=== PATIENT | male | born 1940 | race Caucasian/White ===

== ENCOUNTER 2016-04-02 09:29 | Emergency (ER) | payer MEDICARE, BC ==
[2016-04-02] MEDS ORDERED: METOCLOPRAMIDE HCL 5 MG/ML VIAL IV ONE ×2 (10:31→12:03)
[2016-04-02] MEDS ORDERED: diphenhydrAMINE HCL 50 MG/ML VIAL IV ONE ×2 (10:31→12:03)
[2016-04-02] MEDS ORDERED: MECLIZINE HCL 25 MG TABLET PO ONE ×2 (10:31→12:05)
[2016-04-02] MEDS ORDERED: NORMAL SALINE IV ONE (10:33)
[2016-04-02] MEDS ORDERED: [UNRECOGNIZED DRUG - OTHER] IV ONE (10:33)
[2016-04-02 10:47] LABS: Hematocrit 38.3 % (42.0-52.0); Hemoglobin 12.9 gm/dL (13.5-18.0); Mean Cell Volume 93.6 fl (78-100); Mean Corpuscular Hemoglobin 31.5 pg (27-31); Mean Corpuscular Hgb Conc 33.7 g/dl (32-36); Mean Platelet Volume 9.9 fl (6.0-9.5); Neutrophil # 3.5 K/mm3 (1.3-6.0); Neutrophil % 62.5 % (42-75.0); Platelet Count 180 K/mm3 (150-450); Red Blood Count 4.09 M/mm3 (4.7-6.0); Red Cell Distribution Width 13.5 % (11.5-14.0); White Blood Count 5.6 K/mm3 (4.0-10.5)
--- NOTE | 2016-04-02 10:55 | ERNOTE ---
Headache ER HPI - General Presenting Symptoms: headache, "migraine", other - vertigo Time Seen by Provider: 04/02/16 10:02 Source: patient Exam Limitations: no limitations - Immun/Allergies/Home Medications Immunizations: IMMUNIZATION HX History of Influenza Vaccine No Hx Pneumococcal Vaccination Yes Allergies/Adverse Reactions: Allergies Penicillins Allergy (Severe, Verified 04/02/16 10:00) Hives Home Medications: HOME MEDICATIONS Aspirin [Aspirin Chewable] 81 mg PO DAILY 05/21/13 [Last Taken Unknown] Finasteride 5 mg PO DAILY 05/21/13 [Last Taken Unknown] Hydrochlorothiazide 25 mg PO DAILY 05/21/13 [Last Taken Unknown] Levothyroxine Sodium [Synthroid] 150 mcg PO DAILY 05/21/13 [Last Taken Unknown] Metoprolol Tartrate [Lopressor] 75 mg PO BID 05/21/13 [Last Taken Unknown] Naproxen Sodium [Aleve] 220 mg PO PRN PRN 05/21/13 [Last Taken Unknown] Simvastatin 40 mg PO DAILY 05/21/13 [Last Taken Unknown] Allopurinol [Zyloprim] 300 mg PO DAILY PRN 04/02/16 [Last Taken Unknown] Butalb/Acetaminophen/Caffeine [Fioricet] 1 tab PO TID PRN #20 tablet 04/02/16 [ Last Taken Unknown] Docusate Sodium [Colace] 100 mg PO DAILY 04/02/16 [Last Taken Unknown] Meclizine HCl [Antivert] 25 mg PO TID #42 tab 04/02/16 [Last Taken Unknown] - Pain Pain Score: 6 - History of Present Illness Narrative: Pt has been having vertigo and a headache for over a week now. Pt has chronic vertigo that has frequent exacerbations and this episode is similar to his usual dizziness. Timing of Headache: gradual, constant Quality: Present: throbbing Severity Maximum: Present: moderate Severity-Currently: Present: moderate Headache frequency: Present: occasional headaches Associated Symptoms: Reports: dizziness Review of Systems - Review of Systems Constitutional: Present: See HPI EYE: Present: no symptoms reported ENT: Present: no symptoms reported Respiratory: Present: no symptoms reported Cardiology: Present: no symptoms reported Gastrointestinal/Abdominal: Present: no symptoms reported Genitourinary: Present: no symptoms reported Musculoskeletal: Present: no symptoms reported Skin: Present: no symptoms reported Neurological: Present: headache, dizziness/light-headedness Endocrine: Present: no symptoms reported Hematologic/Lymphatic: Present: no symptoms reported Psych: Present: no symptoms reported - Patient's Past Medical History Patient History - Medical: Arthritis, Diabetes Type 2, GERD, Hypothyroidism, Kidney stone, Migraines, Obesity, Renal Failure, Other - vertigo Patient History - Cancer: No Hx of Cancer Patient History - Surgical Procedures: Angioplasty, Back Surgery, Cholecystectomy, Other - Social History Smoking Status: Former smoker Have you smoked in the past 12 months: No Physical Exam - Physical Exam General Appearance: Present: wd/wn, alert, moderate distress Eye Exam: Normal inspection: bilateral, PERRL: bilateral Ears, Nose, Throat: Present: normal ENT inspection, hearing grossly normal, normal pharynx Neck: Present: normal inspection, nontender Respiratory: Present: no respiratory distress, normal breath sounds, no accessory muscle use, chest nontender, lungs clear Cardiovascular/Chest: Present: regular rate, rhythm, no murmur, normal peripheral pulses Gastrointestinal/Abdominal: Present: normal bowel sounds, nontender, nondistended, soft, no organomegaly Rectal Exam: Present: deferred Back Exam: Present: normal inspection, normal range of motion Extremity Exam: Present: normal inspection, non-tender, no edema, normal range of motion Neurological Exam: Present: alert, oriented, normal mood/affect, no motor/ sensory deficits, 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 - Vital Signs Patient's Vital Signs:: I have reviewed the patient's vital signs. Vital Signs: Vital Signs 04/02/16 09:57 Temperature 35.5 C L Pulse Rate 66 Respiratory 14 Rate Blood Pressure 153/82 O2 Sat by Pulse 95 Oximetry - CT/Ultrasound CT/Ultrasound Narrative: CT results were reviewed - Progress/Reassessment Chief Complaint: Headache Progress:: Improved - Transfer of Care Expected Disposition: Discharge Plan - Plan Plan: Pt has chronic vertigo but did seem to respond to the Antivert. We will try some Fiorecet for his headaches. He has used Aleve in the past but given his renal insufficiency he will use that medication judiciously. Departure Clinical Impression: Vertigo, Migraine - Departure Disposition: Home self-care Condition: Good Instructions: Vertigo, [id number], Recurrent Migraine Headache, [id number] Referrals: Darell Madrigal DO [Primary Care Provider] - Prescriptions: Butalb/Acetaminophen/Caffeine [Fioricet] 1 tab PO TID PRN #20 tablet PRN Reason: Headache Meclizine HCl [Antivert] 25 mg PO TID #42 tab
[2016-04-02 11:01] LABS: Albumin * 3.1 gm/dl (3.4-5.0); Anion Gap 9.7 mmol/L (6.8-13.8); BUN/Creatinine Ratio 18.8 (9.0-21.6); Bilirubin, Total 0.3 mg/dL (0.0-1.1); Ca. Corrected For Albumin 9.6 mg/dL (8.4-10.2); Calcium * 9.2 mg/dL (7.9-10.9); Carbon Dioxide 30.2 mmol/L (24-32.6); Magnesium 1.7 mg/dL (1.2-2.8); Potassium 4.9 mmol/L (3.4-4.6); Total Protein 6.5 gm/dL (6.2-8.2)
[2016-04-02] MEDS ORDERED: MECLIZINE HCL 25 MG TABLET ONE ×2 (11:01→12:09)
[2016-04-02] MEDS ORDERED: diphenhydrAMINE HCL 50 MG/ML VIAL ONE ×2 (11:01→12:09)
[2016-04-02] MEDS ORDERED: METOCLOPRAMIDE HCL 5 MG/ML VIAL ONE ×2 (11:01→12:09)
[2016-04-02] MEDS ORDERED: DIAZEPAM 5 MG/ML SYRG IV ONE (12:04)
[2016-04-02] MEDS ORDERED: DIAZEPAM 5 MG/ML SYRG ONE (12:08)
[2016-04-02 14:36] VITALS: BP 165/82
[2016-04-04 13:12] LABS: Hemoglobin A1C 6.9 % (4.00-6.0)
== END 2016-04-02 13:35 | disposition home or self-care (01) ==
LOC: ER 09:29
DX: G43.909 Migraine, unspecified, not intractable, without status migrainosus (principal); R42 Dizziness and giddiness; Z87.891 Personal history of nicotine dependence; Z90.49 Acquired absence of other specified parts of digestive tract; E03.9 Hypothyroidism, unspecified

== ENCOUNTER 2016-12-02 12:36 | Emergency (ER) | payer MEDICARE, BC ==
[2016-12-02] MEDS ORDERED: LIDOCAINE HCL 20 ML UDC PO ONE (12:52)
[2016-12-02] MEDS ORDERED: BELLADONNA ALKALOIDS/PHENOBARB 60 ML BTL PO ONE (12:52)
[2016-12-02] MEDS ORDERED: MAG HYDROX/ALUMINUM HYD/SIMETH 30 ML UDC PO ONE (12:52)
[2016-12-02 13:09] LABS: Hematocrit 37.4 % (42.0-52.0); Mean Cell Volume 89.3 fl (78-100); Mean Corpuscular Hgb Conc 34.8 g/dl (32-36); Mean Platelet Volume 10.2 fl (6.0-9.5); Neutrophil # 5.1 K/mm3 (1.3-6.0); Neutrophil % 70.1 % (42-75.0); Platelet Count 180 K/mm3 (150-450); Red Blood Count 4.19 M/mm3 (4.7-6.0); Red Cell Distribution Width 13.4 % (11.5-14.0); White Blood Count 7.3 K/mm3 (4.0-10.5)
[2016-12-02 13:16] LABS: Prothrombin Time (Patient) 10.6 Seconds (9.4-11.4)
[2016-12-02 13:17] LABS: INR 1.02 INR (0.90-1.10); Partial Thrombolplastin Time 24.6 Seconds (24-32)
[2016-12-02 13:27] LABS: ALT 19 U/L (19-67); AST 11 U/L (0-48); Albumin * 3.2 gm/dl (3.4-5.0); Alkaline Phosphatase * 71 U/L (50-170); Anion Gap 13.9 mmol/L (6.8-13.8); BUN/Creatinine Ratio 21.3 (9.0-21.6); Bilirubin, Total 0.5 mg/dL (0.0-1.1); Blood Urea Nitrogen 37 mg/dL (6-23); Ca. Corrected For Albumin 9.3 mg/dL (8.4-10.2); Carbon Dioxide 27.3 mmol/L (24-32.6); Chloride 104 mmol/L (97-106); Glucose * 209 mg/dL (70-110); Magnesium 1.4 mg/dL (1.2-2.8); Potassium 5.2 mmol/L (3.4-4.6); Sodium 140 mmol/L (132-142); Total Protein 6.7 gm/dL (6.2-8.2)
[2016-12-02 13:28] LABS: Troponin I Less than 0.017 ng/ml (0.00-0.10)
--- NOTE | 2016-12-02 14:19 | ERNOTE ---
Chest Pain/Cardiac HPI Chief Complaint: Chest Pain Time Seen by Provider: 12/02/16 12:42 Source: patient, family Exam Limitations: no limitations Immunizations: IMMUNIZATION HX Immunizations Up to Date Yes History of Influenza Vaccine Yes Hx Pneumococcal Vaccination Yes Allergies/Adverse Reactions: Allergies Penicillins Allergy (Severe, Verified 12/02/16 12:53) Hives Home Medications: HOME MEDICATIONS Aspirin [Aspirin Chewable] 81 mg PO DAILY 05/21/13 [Last Taken Unknown] Finasteride 5 mg PO DAILY 05/21/13 [Last Taken Unknown] Levothyroxine Sodium [Synthroid] 150 mcg PO DAILY 05/21/13 [Last Taken Unknown] Metoprolol Tartrate [Lopressor] 75 mg PO BID 05/21/13 [Last Taken Unknown] Simvastatin 40 mg PO DAILY 05/21/13 [Last Taken Unknown] Cholecalciferol (Vitamin D3) [Vitamin D3] 1,000 unit PO DAILY 12/02/16 [Last Taken Unknown] Famotidine [Pepcid] 40 mg PO HS #30 tab 12/02/16 [Last Taken Unknown] Sucralfate [Carafate] 1 gm PO QID #60 tab 12/02/16 [Last Taken Unknown] Narrative: Patient presents with epigastric abdominal pain. Onset of symptoms was approximately 2-3 hours ago and describes it as a burning sensation. Patient denies any neck or jaw pain, he also denies any shortness of breath or diaphoresis. Timing: constant Severity/Quality: mild, burning Location: epigastric Chest Pain Radiation: no radiation Activities at Onset: none Modifying Factors - Improves: Present: nothing Modifying Factors - Worsens: Present: nothing Associated Symptoms: Present: denies symptoms Prior Chest Pain/Cardiac Workup: Reports: no prior cardiac workup Review of Systems - Review of Systems Constitutional: Present: See HPI EYE: Present: no symptoms reported ENT: Present: no symptoms reported Respiratory: Present: no symptoms reported Cardiology: Present: no symptoms reported Gastrointestinal/Abdominal: Present: See HPI, abdominal pain Genitourinary: Present: no symptoms reported Musculoskeletal: Present: no symptoms reported Skin: Present: no symptoms reported Neurological: Present: no symptoms reported Endocrine: Present: no symptoms reported Hematologic/Lymphatic: Present: no symptoms reported Psych: Present: no symptoms reported - Patient's Past Medical History Patient History - Medical: Arthritis, Diabetes Type 2, GERD, Hypothyroidism, Kidney stone, Migraines, Obesity, Renal Failure, Other Patient History - Cardiac/Respiratory: Arrhythmias, Coronary Heart Disease, Hypertension, Hyperlipidemia, Myocardial Infarction, Pneumonia Patient History - Cancer: No Hx of Cancer Patient History - Surgical Procedures: Angioplasty, Back Surgery, Cholecystectomy, Other - Social History Living Situations: home Psych History: No pertinent hx Smoking Status: Current every day smoker Alcohol Use: none Drug Use: none - Immunizations Immunizations Up to Date: Yes Hx Pneumococcal Vaccination: Yes History of Influenza Vaccine: Yes Physical Exam - Physical Exam General Appearance: Present: wd/wn, alert, mild distress Head Exam: Present: normal inspection Eye Exam: Normal inspection: bilateral, PERRL: bilateral Ears, Nose, Throat: Present: normal ENT inspection, H, normal pharynx Neck: Present: normal inspection, nontender Respiratory: Present: no respiratory distress, normal breath sounds, no accessory muscle use, chest nontender, lungs clear Cardiovascular/Chest: Present: regular rate, rhythm, no murmur, normal peripheral pulses Gastrointestinal/Abdominal: Present: normal bowel sounds, nondistended, soft, no organomegaly, tenderness - in the epigastric region Rectal Exam: Present: deferred Back Exam: Present: normal inspection, normal range of motion Extremity Exam: Present: normal inspection, non-tender, no edema, normal range of motion Neurological Exam: Present: alert, oriented, normal mood/affect Skin Exam: Present: normal color, warm/dry Lymphatic Exam: Present: no adenopathy ED Progress - Results and Orders Patient's Lab Results:: I have reviewed the patient's lab results. - Vital Signs Patient's Vital Signs:: I have reviewed the patient's vital signs. Vital Signs: Vital Signs 12/02/16 12/02/16 12/02/16 12:40 13:00 13:35 Temperature 36.0 C L Pulse Rate 63 64 69 Respiratory 9 L 11 L 12 Rate Blood Pressure 174/77 136/59 168/77 O2 Sat by Pulse 97 97 98 Oximetry - EKG EKG: NSR - X-Ray X-Ray #1 X-Ray: chest Interpretation: Reviewed by me - Progress/Reassessment Chief Complaint: Chest Pain Progress:: Improved - patient was given a GI cocktail and his stomach pain improved Plan - Plan Plan: Patient feels better however he has been off of his medicine for his GERD for some time. Patient will be restarted on Prevacid as well as Carafate and we will have him follow-up with his family physician. Patient may benefit from an EGD and I will leave that up to the discretion of his personal physician. Departure - Departure Clinical Impression: GERD with esophagitis Disposition: Home self-care Condition: Good Instructions: Indigestion, [id number] Referrals: Darell Madrigal DO [Primary Care Provider] - Prescriptions: Famotidine [Pepcid] 40 mg PO HS #30 tab Sucralfate [Carafate] 1 gm PO QID #60 tab
[2016-12-02 15:15] VITALS: BP 147/72
== END 2016-12-02 14:19 | disposition home or self-care (01) ==
LOC: ER 12:36
DX: K21.0 Gastro-esophageal reflux disease with esophagitis (principal); F17.200 Nicotine dependence, unspecified, uncomplicated

== ENCOUNTER 2017-02-01 16:50 | Emergency (ER) | payer MEDICARE, BC ==
[2017-02-01 17:13] LABS: Hematocrit 39.8 % (42.0-52.0); Hemoglobin 13.6 gm/dL (13.5-18.0); Mean Cell Volume 90.5 fl (78-100); Mean Corpuscular Hemoglobin 30.9 pg (27-31); Mean Corpuscular Hgb Conc 34.2 g/dl (32-36); Neutrophil # 3.7 K/mm3 (1.3-6.0); Neutrophil % 62.8 % (42-75.0); Platelet Count 192 K/mm3 (150-450); Red Cell Distribution Width 12.7 % (11.5-14.0); White Blood Count 5.9 K/mm3 (4.0-10.5)
[2017-02-01 17:21] LABS: Anion Gap 11.5 mmol/L (6.8-13.8); BUN/Creatinine Ratio 17.4 (9.0-21.6); Calcium * 9.4 mg/dL (7.9-10.9); Carbon Dioxide 31.3 mmol/L (24-32.6); Estimated Creat Clear 33.3; Magnesium 1.6 mg/dL (1.2-2.8); Potassium 4.8 mmol/L (3.4-4.6)
--- NOTE | 2017-02-01 17:22 | ERNOTE ---
Medical Problem HPI - General Chief Complaint: General Assessment Time Seen by Provider: 02/01/17 16:57 Source: patient, family Exam Limitations: no limitations - Immun/Allergies/Home Medications Immunizations: IMMUNIZATION HX Immunizations Up to Date Yes History of Influenza Vaccine No Hx Pneumococcal Vaccination Yes Allergies/Adverse Reactions: Allergies Penicillins Allergy (Severe, Verified 12/02/16 12:53) Hives Home Medications: HOME MEDICATIONS Aspirin [Aspirin Chewable] 81 mg PO DAILY 05/21/13 [Last Taken Unknown] Finasteride 5 mg PO DAILY 05/21/13 [Last Taken Unknown] Levothyroxine Sodium [Synthroid] 175 mcg PO DAILY 05/21/13 [Last Taken Unknown] Metoprolol Tartrate [Lopressor] 75 mg PO BID 05/21/13 [Last Taken Unknown] Simvastatin 40 mg PO DAILY 05/21/13 [Last Taken Unknown] Cholecalciferol (Vitamin D3) [Vitamin D3] 1,000 unit PO DAILY 12/02/16 [Last Taken Unknown] Allopurinol [Zyloprim] 400 mg PO DAILY 02/01/17 [Last Taken Unknown] Docusate Sodium [Colace] 100 mg PO DAILY 02/01/17 [Last Taken Unknown] - History of Present History Narrative: Earlier today the patient had bilateral lower lateral thoracic chest wall tenderness to palpation. All the symptoms had resolved just prior to coming into the hospital but they decided to continue on just to make sure nothing else was wrong. Patient had no other pain. No shortness of breath, no diaphoresis, no neck, arm or jaw pain. Timing: gone now Severity: moderate Review of Systems - Review of Systems Constitutional: Present: no symptoms reported EYE: Present: no symptoms reported ENT: Present: no symptoms reported Respiratory: Present: no symptoms reported Cardiology: Present: chest pain Gastrointestinal/Abdominal: Present: no symptoms reported Genitourinary: Present: no symptoms reported Musculoskeletal: Present: no symptoms reported Skin: Present: no symptoms reported Neurological: Present: no symptoms reported Endocrine: Present: no symptoms reported Hematologic/Lymphatic: Present: no symptoms reported Psych: Present: no symptoms reported - Patient's Past Medical History Patient History - Medical: Arthritis, Diabetes Type 2, GERD, Hypothyroidism, Kidney stone, Migraines, Obesity, Renal Failure, Other Patient History - Cardiac/Respiratory: Arrhythmias, Coronary Heart Disease, Hypertension, Hyperlipidemia, Myocardial Infarction, Pneumonia Patient History - Cancer: No Hx of Cancer Patient History - Surgical Procedures: Angioplasty, Back Surgery, Cholecystectomy, Other Patient History - Other: None - Social History Living Situations: home Abuse History: No History of abuse Psych History: No pertinent hx Smoking Status: Former smoker Alcohol Use: none Drug Use: none - Immunizations Immunizations Up to Date: Yes Hx Pneumococcal Vaccination: Yes History of Influenza Vaccine: No Physical Exam - Physical Exam General Appearance: Present: wd/wn, alert, no apparent distress Eye Exam: Normal inspection: bilateral, PERRL: bilateral Ears, Nose, Throat: Present: normal ENT inspection, H, normal pharynx Neck: Present: normal inspection, nontender Respiratory: Present: no respiratory distress, normal breath sounds, no accessory muscle use, chest nontender, lungs clear Cardiovascular/Chest: Present: regular rate, rhythm, no murmur, normal peripheral pulses Gastrointestinal/Abdominal: Present: normal bowel sounds, nontender, nondistended, soft, no organomegaly Rectal Exam: Present: deferred Back Exam: Present: normal inspection, normal range of motion Extremity Exam: Present: normal inspection, non-tender, no edema, normal range of motion Neurological Exam: Present: alert, oriented, normal mood/affect Skin Exam: Present: normal color, warm/dry Lymphatic Exam: Present: no adenopathy ED Progress - Results and Orders Patient's Lab Results:: I have reviewed the patient's lab results. - Vital Signs Patient's Vital Signs:: I have reviewed the patient's vital signs. Vital Signs: Vital Signs 02/01/17 16:52 Temperature 36.9 C Pulse Rate 77 Respiratory 18 Rate Blood Pressure 184/88 O2 Sat by Pulse 99 Oximetry - X-Ray X-Ray #1 X-Ray: chest Interpretation: Reviewed by me - Progress/Reassessment Chief Complaint: General Assessment Plan - Plan Plan: I am suspecting some sort of a chest wall muscle spasm as the etiology for his palpably reproducible chest wall pain that he had prior to arrival. Of note is his mildly elevated potassium at 4.8 and he'll be referred back to his family physician for monitoring of his potassium level. Patient is currently symptom- free and I see no need for any further intervention at this point. Departure Clinical Impression: Chest wall discomfort - Departure Disposition: Home self-care Condition: Good Instructions: Chest Wall Pain, [id number], Hyperkalemia, [id number] Referrals: Darell Madrigal, [Primary Care Provider] -
[2017-02-01] MEDS ORDERED: SODIUM POLYSTYRENE SULFON/SORB 15 G/60 ML BTL PO ONE (17:29)
[2017-02-01] MEDS ORDERED: SODIUM POLYSTYRENE SULFON/SORB 15 G/60 ML BTL ONE (17:31)
[2017-02-01 17:36] VITALS: BP 178/82
== END 2017-02-01 17:39 | disposition home or self-care (01) ==
LOC: ER 16:50
DX: R07.89 Other chest pain (principal); M19.90 Unspecified osteoarthritis, unspecified site; E11.9 Type 2 diabetes mellitus without complications; K21.9 Gastro-esophageal reflux disease without esophagitis; E03.9 Hypothyroidism, unspecified; N19 Unspecified kidney failure; I25.2 Old myocardial infarction; I10 Essential (primary) hypertension; E78.5 Hyperlipidemia, unspecified

== ENCOUNTER 2018-02-15 11:49 | Observation (INO) | payer BC, MEDICARE ==
[2018-02-15] MEDS ORDERED: DILTIAZEM HCL 5 MG/ML VIAL IV ONE ×2 (12:09→13:21)
[2018-02-15 12:17] LABS: Hematocrit 40.2 % (42.0-52.0); Hemoglobin 13.6 gm/dL (13.5-18.0); Mean Cell Volume 90.5 fl (78-100); Mean Corpuscular Hemoglobin 30.6 pg (27-31); Mean Corpuscular Hgb Conc 33.8 g/dl (32-36); Neutrophil # 4.5 K/mm3 (1.3-6.0); Neutrophil % 66.4 % (42-75.0); Platelet Count 184 K/mm3 (150-450); Red Blood Count 4.44 M/mm3 (4.7-6.0); Red Cell Distribution Width 13.1 % (11.5-14.0); White Blood Count 6.8 K/mm3 (4.0-10.5)
[2018-02-15 12:27] LABS: Prothrombin Time (Patient) 29.3 Seconds (9.0-11.0)
[2018-02-15 12:28] LABS: INR 2.9 INR (0.90-1.10)
[2018-02-15 12:36] LABS: ALT 26 U/L (19-67); AST 15 U/L (0-48); Albumin * 3.2 gm/dl (3.4-5.0); Alkaline Phosphatase * 71 U/L (50-170); Anion Gap 12.4 mmol/L (6.8-13.8); BUN/Creatinine Ratio 17.1 (9.0-21.6); Bilirubin, Total 0.3 mg/dL (0.0-1.1); Blood Urea Nitrogen 40 mg/dL (6-23); Ca. Corrected For Albumin 10.1 mg/dL (8.4-10.2); Calcium * 9.8 mg/dL (7.9-10.9); Carbon Dioxide 27.7 mmol/L (24-32.6); Chloride 106 mmol/L (97-106); Glucose * 196 mg/dL (70-110); Magnesium 1.8 mg/dL (1.2-2.8); Potassium 5.1 mmol/L (3.4-4.6); Sodium 141 mmol/L (132-142); Total Protein 7.2 gm/dL (6.2-8.2)
[2018-02-15 12:37] LABS: BNP * 613 pg/mL (5-650)
[2018-02-15 12:39] LABS: Troponin I Less than 0.017 ng/mL (0.00-0.10)
[2018-02-15] MEDS ORDERED: DEXTROSE 50%-WATER 50 ML SYRG IV ONE (12:42)
[2018-02-15] MEDS ORDERED: DILTIAZEM HCL 30 MG TABLET PO ONE (12:42)
[2018-02-15] MEDS ORDERED: INSULIN REGULAR, HUMAN 100 UNITS/ML VIAL IV ONE (12:42)
[2018-02-15] MEDS ORDERED: SODIUM POLYSTYRENE SULFON/SORB 15 G/60 ML BTL PO ONE (12:42)
[2018-02-15] MEDS ORDERED: CALCIUM GLUCONATE 4.65 MEQ/10 ML VIAL IV ONE (13:23)
[2018-02-15] MEDS ORDERED: SODIUM BICARBONATE 1 MEQ/ML SYRG IV ONE (13:23)
[2018-02-15] MEDS ORDERED: ALBUTEROL SULFATE 2.5 MG/0.5 ML VIAL.NEB IH ONE (13:23)
--- NOTE | 2018-02-15 13:35 | ERNOTE ---
Dyspnea - General Presenting Symptoms: shortness of breath, other - he feels like his heart is racing Time Seen by Provider: 02/15/18 11:55 Source: patient, family Exam Limitations: no limitations - Immun/Allergies/Home Medications Immunizations: IMMUNIZATION HX Immunizations Up to Date Yes History of Influenza Vaccine No Hx Pneumococcal Vaccination Yes Allergies/Adverse Reactions: Allergies Penicillins Allergy (Severe, Verified 02/15/18 12:02) Hives Home Medications: HOME MEDICATIONS Aspirin [Aspirin Chewable] 81 mg PO DAILY 05/21/13 [Last Taken Unknown] Finasteride 5 mg PO DAILY 05/21/13 [Last Taken Unknown] Levothyroxine Sodium [Synthroid] 175 mcg PO DAILY 05/21/13 [Last Taken Unknown] Cholecalciferol (Vitamin D3) [Vitamin D3] 1,000 unit PO DAILY 12/02/16 [Last Taken Unknown] Docusate Sodium [Colace] 100 mg PO DAILY 02/01/17 [Last Taken Unknown] Glimepiride [Amaryl] 2 mg PO DAILY 07/17/17 [Last Taken Unknown] allopurinol 300 mg tablet 300 mg PO DAILY PRN 11/06/17 [Last Taken Unknown] metoprolol tartrate 50 mg tablet 50 mg PO BID 11/06/17 [Last Taken Unknown] sertraline 50 mg tablet 50 mg PO DAILY #30 tab 12/21/17 [Last Taken Unknown] simvastatin 20 mg tablet 20 mg PO QPM 12/21/17 [Last Taken Unknown] Warfarin Sodium [Coumadin] 2.5 mg PO MOFR 02/15/18 [Last Taken Unknown] Warfarin Sodium [Coumadin] 5 mg PO SUTUWETHSA 02/15/18 [Last Taken Unknown] - History of Present Illness Narrative: Patient states that he has some shortness of breath and he feels like his heart is racing. Onset was last night and persists through to today Severity: moderate Treatment AIRPORT PLANNER: none Initiating event: Reports: none Frequency of episodes: Reports: occassional episodes Associated Symptoms-Dyspnea: Reports: palpitations Review of Systems - Review of Systems Constitutional: Present: See HPI EYE: Present: no symptoms reported ENT: Present: no symptoms reported Respiratory: Present: See HPI Cardiology: Present: See HPI Gastrointestinal/Abdominal: Present: no symptoms reported Genitourinary: Present: no symptoms reported Musculoskeletal: Present: no symptoms reported Skin: Present: no symptoms reported Neurological: Present: no symptoms reported Endocrine: Present: no symptoms reported Hematologic/Lymphatic: Present: no symptoms reported Psych: Present: no symptoms reported Medical History (Last Reviewed 02/15/18 @ 12:01 by Guero Winter RN) Atrial fibrillation (Chronic) Onset Date: ~05/2017 Hypovitaminosis D (Chronic) Onset Date: Unknown Stenosis of right carotid artery (Chronic) Onset Date: Unknown Secondary hyperparathyroidism (of renal origin) (Chronic) Onset Date: Unknown Psoriasis (Chronic) Onset Date: Unknown Onychomycosis (Chronic) Onset Date: Unknown Obesity (Chronic) Onset Date: Unknown Hypothyroidism (Chronic) Onset Date: Unknown Hypertension (Chronic) Onset Date: Unknown Hyperlipidemia (Chronic) Onset Date: Unknown Gout (Chronic) Onset Date: Unknown GERD (gastroesophageal reflux disease) (Chronic) Onset Date: Unknown Diabetes mellitus, type II (Chronic) Onset Date: Unknown Coronary artery disease (Chronic) Onset Date: 02/22/13 Chronic kidney disease, stage 3 (Chronic) Onset Date: Unknown Renal failure (Chronic) Onset Date: Unknown Arthritis (Chronic) Onset Date: Unknown BPH (benign prostatic hyperplasia) Onset Date: Unknown Gastritis Onset Date: ~05/2017 Headache Onset Date: Unknown Hyperkalemia Onset Date: Unknown Kidney stone Onset Date: Unknown Migraine Onset Date: Unknown Pneumonia Onset Date: Unknown Proteinuria Onset Date: Unknown Toe pain, left Onset Date: Unknown Atrial flutter Onset Date: 06/09/17 Myocardial infarction Onset Date: Unknown x3 Surgical History: Surgical History (Last Reviewed 02/15/18 @ 12:01 by Guero Winter RN) H/O colonoscopy Onset Date: ~2008 [place]: WNL History of PTCA Onset Date: Unknown History of angioplasty Onset Date: Unknown x3 History of back surgery Onset Date: 1983 Dr. Perry; Lumbar laminectomy L4 History of cholecystectomy Onset Date: ~1975 History of esophagogastroduodenoscopy (EGD) Onset Date: ~2008 History of excision of epidermal inclusion cyst Onset Date: 09/19/13 Dr. Lars Conroy, [facility]. Right groin. Family History: Family History (Last Reviewed 02/15/18 @ 12:01 by Guero Winter RN) Mother , age 84 Diabetes Breast cancer Social History: Preferred Language Greek Smoking Status Former smoker Abuse History No History of abuse Psych History No pertinent hx Alcohol Use none Drug Use none (Last Updated 01/07/18 @ 23:54 by Darell Madrigal DO) No Social History Section defined Physical Exam - Physical Exam General Appearance: Present: wd/wn, alert, mild distress Head Exam: Present: normal inspection, no evidence of injury Eye Exam: Normal inspection: bilateral, PERRL: bilateral Ears, Nose, Throat: Present: normal ENT inspection, H, normal pharynx Neck: Present: normal inspection, nontender Respiratory: Present: no respiratory distress, normal breath sounds, no accessory muscle use, chest nontender, lungs clear Cardiovascular/Chest: Present: no murmur, normal peripheral pulses, tachycardia Gastrointestinal/Abdominal: Present: normal bowel sounds, nontender, nondistended, soft, no organomegaly Rectal Exam: Present: deferred Male Genitals Exam: Present: deferred Back Exam: Present: normal inspection, normal range of motion Extremity Exam: Present: normal inspection, non-tender, no edema, normal range of motion Neurological Exam: Present: alert, oriented, normal mood/affect Skin Exam: Present: normal color, warm/dry Lymphatic Exam: Present: no adenopathy ED Progress - Results and Orders Patient's Lab Results:: I have reviewed the patient's lab results. - Vital Signs Patient's Vital Signs:: I have reviewed the patient's vital signs. Vital Signs: Vital Signs 02/15/18 11:49 02/15/18 12:12 02/15/18 12:16 Temperature 36.6 C Pulse Rate 129 H 130 H 118 H Respiratory Rate 14 27 H Blood Pressure 102/76 122/86 106/80 O2 Sat by Pulse Oximetry 98 97 02/15/18 12:42 02/15/18 12:57 02/15/18 13:00 Temperature Pulse Rate 116 H 111 H 110 H Respiratory Rate 17 16 Blood Pressure 113/82 132/84 132/84 O2 Sat by Pulse Oximetry 97 94 - EKG EKG: atrial flutter EKG read: Reviewed by me - X-Ray X-Ray #1 X-Ray: chest Interpretation: Reviewed by me - Progress/Reassessment Chief Complaint: Dyspnea Plan - Plan Plan: We have attempted to correct the patient's atrial flutter with a rapid response and we got a brief results with Cardizem IV over U reverted back to a rapid heart rate. We have also started a correction for his hyperkalemia which could be driving atrial flutter as well. Patient needs to be admitted overnight to we can get the right dose of Cardizem for him and we can get the hyperkalemia corrected. Departure Clinical Impression: Hyperkalemia Atrial flutter Qualifiers: Atrial flutter type: typical Qualified Code(s): I48.3 - Typical atrial flutter - Departure Disposition: Still a patient Condition: Fair Referrals: Darell Madrigal DO [Primary Care Provider] - Critical Care Note - Critical Care Note Total Time (mins): 35 Comments: Patient required multiple doses of IV Cardizem as well as adding an oral Cardizem to help control her rate. He was also given a variety medications for his hyperkalemia and he'll need to be admitted at least overnight to get a handle on both his heart rate and his hyperkalemia.
[2018-02-15] MEDS ORDERED: DILTIAZEM HCL 120 MG CAP.SR.24H PO ONE (14:00)
[2018-02-15] MEDS ORDERED: ALLOPURINOL 300 MG TABLET PO PRN (16:35)
[2018-02-15] MEDS ORDERED: WARFARIN SODIUM 2.5 MG TABLET PO SCH (17:00)
[2018-02-15] MEDS ORDERED: SIMVASTATIN 20 MG TABLET PO SCH (17:00)
[2018-02-15] MEDS: 0.5 NORMAL SALINE 1,000 ML IV PRN (18:52)
[2018-02-15] MEDS ORDERED: METOPROLOL TARTRATE 50 MG TABLET PO SCH (21:00)
[2018-02-15] MEDS: METOPROLOL TARTRATE 100 MG TABLET PO SCH (21:40)
--- NOTE | 2018-02-15 23:09 | HP ---
Chief Complaint - Chief Complaint Date of Service: 02/15/18 Time of Service: 16:45 Chief Complaint: Shortness of breath History of Present Illness: Jayjay is a 77 yo male that presented to the [facility] ER with shortness of breath. He has a known history of atrial fibrillation and is on metoprolol 50mg BID and Coumadin. He woke up to shortness of breath and presented to the ER. He was found to have a rapid heart rate of 130 to 140. He was given IV diltiazem and heart rate improved. He reports no changes in medication, diet, or activity. Medical History (Last Reviewed 02/25/18 @ 13:59 by Mikayla Chawla RN) Atrial fibrillation (Chronic) Onset Date: ~05/2017 Hypovitaminosis D (Chronic) Onset Date: Unknown Stenosis of right carotid artery (Chronic) Onset Date: Unknown Secondary hyperparathyroidism (of renal origin) (Chronic) Onset Date: Unknown Psoriasis (Chronic) Onset Date: Unknown Onychomycosis (Chronic) Onset Date: Unknown Obesity (Chronic) Onset Date: Unknown Hypothyroidism (Chronic) Onset Date: Unknown Hypertension (Chronic) Onset Date: Unknown Hyperlipidemia (Chronic) Onset Date: Unknown Gout (Chronic) Onset Date: Unknown GERD (gastroesophageal reflux disease) (Chronic) Onset Date: Unknown Diabetes mellitus, type II (Chronic) Onset Date: Unknown Coronary artery disease (Chronic) Onset Date: 02/22/13 Chronic kidney disease, stage 3 (Chronic) Onset Date: Unknown Renal failure (Chronic) Onset Date: Unknown Arthritis (Chronic) Onset Date: Unknown BPH (benign prostatic hyperplasia) Onset Date: Unknown Gastritis Onset Date: ~05/2017 Headache Onset Date: Unknown Hyperkalemia Onset Date: Unknown Kidney stone Onset Date: Unknown Migraine Onset Date: Unknown Pneumonia Onset Date: Unknown Proteinuria Onset Date: Unknown Toe pain, left Onset Date: Unknown Atrial flutter Onset Date: 06/09/17 Myocardial infarction Onset Date: Unknown x3 Surgical History: Surgical History (Last Reviewed 02/25/18 @ 13:59 by Mikayla Chawla RN) H/O colonoscopy Onset Date: ~2008 [place]: WNL History of PTCA Onset Date: Unknown History of angioplasty Onset Date: Unknown x3 History of back surgery Onset Date: 1983 Dr. Perry; Lumbar laminectomy L4 History of cholecystectomy Onset Date: ~1975 History of esophagogastroduodenoscopy (EGD) Onset Date: ~2008 History of excision of epidermal inclusion cyst Onset Date: 09/19/13 Dr. Lars Conroy, [facility]. Right groin. Family History: Family History (Last Reviewed 02/25/18 @ 13:59 by Mikayla Chawla RN) Mother , age 84 Diabetes Breast cancer Social History: Patient Lives/Resources With Spouse Utilized Occupation Retired Preferred Language Ch[place] Do you have any cheondoism or No cultural preference? Smoking Status Never smoker Have you smoked in the past 12 No months Abuse History No History of abuse Psych History No pertinent hx Alcohol Use none Drug Use none (Last Updated 01/07/18 @ 23:54 by Darell Madrigal DO) No Social History Section defined Review Of Systems (GEN) - Review of Systems Generalized/Overall Review: Absent: Weakness, Chills, Fever Respiratory: Present: Shortness of Breath. Absent: Cough Cardiac: Present: Palpitations. Absent: Chest Pain, Edema Abdominal: Absent: Nausea, Vomiting Genitourinary: Present: No Symptoms Reported Musculoskeletal: Present: No Symptoms Reported Neurological: Present: No Symptoms Reported Skin: Present: No Symptoms Reported Endocrine: Present: No Symptoms Reported Immunizations: IMMUNIZATION HX Immunizations Up to Date Yes History of Influenza Vaccine No Hx Pneumococcal Vaccination Yes Allergies/Adverse Reactions: Allergies Allergy/AdvReac Type Severity Reaction Status Date / Time Penicillins Allergy Severe Hives Verified 02/25/18 13:58 Home Medications: HOME MEDICATIONS Aspirin [Aspirin Chewable] 81 mg PO DAILY 05/21/13 [Last Taken Unknown] Finasteride 5 mg PO DAILY 05/21/13 [Last Taken Unknown] Levothyroxine Sodium [Synthroid] 175 mcg PO DAILY 05/21/13 [Last Taken Unknown] Cholecalciferol (Vitamin D3) [Vitamin D3] 1,000 unit PO DAILY 12/02/16 [Last Taken Unknown] Docusate Sodium [Colace] 100 mg PO DAILY 02/01/17 [Last Taken Unknown] Glimepiride [Amaryl] 2 mg PO DAILY 07/17/17 [Last Taken Unknown] allopurinol 300 mg tablet 300 mg PO DAILY PRN 11/06/17 [Last Taken Unknown] sertraline 50 mg tablet 50 mg PO DAILY #30 tab 12/21/17 [Last Taken Unknown] simvastatin 20 mg tablet 20 mg PO QPM 12/21/17 [Last Taken Unknown] Warfarin Sodium [Coumadin] 2.5 mg PO MOFR 02/15/18 [Last Taken Unknown] Warfarin Sodium [Coumadin] 5 mg PO SUTUWETHSA 02/15/18 [Last Taken Unknown] Metoprolol Tartrate [Lopressor] 100 mg PO BID #60 tab 02/16/18 [Last Taken Unknown] Exam - Exam Vital Signs: Vital Signs - Last Taken Temp 36.7 C 02/15/18 23:03 Pulse 68 02/15/18 23:03 Resp 16 02/15/18 23:03 BP 124/76 02/15/18 23:03 Pulse Ox 95 02/15/18 23:03 Constitutional: Present: Alert, Oriented x3, Cooperative ENT Exam: Present: hearing grossly normal Eye Exam: bilateral eye: normal inspection Respiratory: Present: lungs clear, normal breath sounds Cardiovascular/Chest: Present: no murmur, irregularly irregular Peripheral Pulses: radial (R): 2+, radial (L): 2+ Abdomen: Present: Normal bowel sounds, soft, nontender, nondistended, no rebound tenderness Skin Exam: Present: normal color, warm/dry, no cyanosis Lymphatic: Present: no adenopathy Appearance: Present: appropriate appearance, appropriate insight Eye contact: Present: cooperative, good eye contact, normal speech Diagnostic Studies: Abnormal Lab Results 02/15/18 02/15/18 02/15/18 Range/Units 12:15 12:15 12:15 RBC 4.44 L (4.7-6.0) M/mm3 Hct 40.2 L (42.0-52.0) % Lymphocytes % 12.4 L (20-51) % Monocytes % 9.9 H (0.0-9) % Eosinophils % 10.5 H (0.0-3.0) % Lymphocytes # 0.84 L (1.5-3.5) k/mm3 PT 29.3 H (9.0-11.0) Seconds INR (Anticoag Therapy) 2.90 H (0.90-1.10) INR Plasma Sodium 143 H (130-142) mmol/L Potassium 5.1 H (3.4-4.6) mmol/L BUN 40 H (6-23) mg/dL Creatinine 2.34 H (0.4-1.4) mg/dL Est GFR (Non-Af Amer) 29 L (60-130) mL/min Random Glucose 196 H (70-110) mg/dL Albumin 3.2 L (3.4-5.0) gm/dl TSH (0.358-3.74) uIU/mL 02/15/18 Range/Units 16:42 RBC (4.7-6.0) M/mm3 Hct (42.0-52.0) % Lymphocytes % (20-51) % Monocytes % (0.0-9) % Eosinophils % (0.0-3.0) % Lymphocytes # (1.5-3.5) k/mm3 PT (9.0-11.0) Seconds INR (Anticoag Therapy) (0.90-1.10) INR Plasma Sodium (130-142) mmol/L Potassium (3.4-4.6) mmol/L BUN (6-23) mg/dL Creatinine (0.4-1.4) mg/dL Est GFR (Non-Af Amer) (60-130) mL/min Random Glucose (70-110) mg/dL Albumin (3.4-5.0) gm/dl TSH 0.344 L (0.358-3.74) uIU/mL Laboratory Results WBC 6.8 K/mm3 (4.0-10.5) 02/15/18 12:15 RBC 4.44 M/mm3 (4.7-6.0) L 02/15/18 12:15 Hgb 13.6 gm/dL (13.5-18.0) 02/15/18 12:15 Hct 40.2 % (42.0-52.0) L 02/15/18 12:15 MCV 90.5 fl (78-100) 02/15/18 12:15 MCH 30.6 pg (27-31) 02/15/18 12:15 MCHC 33.8 g/dl (32-36) 02/15/18 12:15 RDW 13.1 % (11.5-14.0) 02/15/18 12:15 Plt Count 184 K/mm3 (150-450) 02/15/18 12:15 MPV 10.0 fl (8-11.3) 02/15/18 12:15 Immature Gran % (Auto) 0.10 % (0.001-0.429) 02/15/18 12:15 Immature Gran # (Auto) 0.01 K/mm3 (0.000-0.0310) 02/15/18 12:15 Neutrophils % 66.4 % (42-75.0) 02/15/18 12:15 Lymphocytes % 12.4 % (20-51) L 02/15/18 12:15 Monocytes % 9.9 % (0.0-9) H 02/15/18 12:15 Eosinophils % 10.5 % (0.0-3.0) H 02/15/18 12:15 Basophils % 0.7 % (0.0-1.0) 02/15/18 12:15 Nucleated RBC % 0.0 k/mm3 (0-1) 02/15/18 12:15 Neutrophils # 4.5 K/mm3 (1.3-6.0) 02/15/18 12:15 Lymphocytes # 0.84 k/mm3 (1.5-3.5) L 02/15/18 12:15 Monocytes # 0.7 k/mm3 (0.0-1.0) 02/15/18 12:15 Eosinophils # 0.7 k/mm3 (0.0-0.7) 02/15/18 12:15 Absolute Basophils 0.1 k/mm3 (0.0-0.1) 02/15/18 12:15 PT 29.3 Seconds (9.0-11.0) H 02/15/18 12:15 INR (Anticoag Therapy) 2.90 INR (0.90-1.10) H 02/15/18 12:15 Sodium 141 mmol/L (132-142) 02/15/18 12:15 Plasma Sodium 143 mmol/L (130-142) H 02/15/18 12:15 Potassium 5.1 mmol/L (3.4-4.6) H 02/15/18 12:15 Chloride 106 mmol/L (97-106) 02/15/18 12:15 Carbon Dioxide 27.7 mmol/L (24-32.6) 02/15/18 12:15 Anion Gap 12.4 mmol/L (6.8-13.8) 02/15/18 12:15 BUN 40 mg/dL (6-23) H 02/15/18 12:15 Creatinine 2.34 mg/dL (0.4-1.4) H 02/15/18 12:15 Est GFR (Non-Af Amer) 29 mL/min (60-130) L 02/15/18 12:15 BUN/Creatinine Ratio 17.1 (9.0-21.6) 02/15/18 12:15 Random Glucose 196 mg/dL (70-110) H 02/15/18 12:15 Calcium 9.8 mg/dL (7.9-10.9) 02/15/18 12:15 Calcium Adj for Albumin 10.1 mg/dL (8.4-10.2) 02/15/18 12:15 Magnesium 1.8 mg/dL (1.2-2.8) 02/15/18 12:15 Total Bilirubin 0.3 mg/dL (0.0-1.1) 02/15/18 12:15 AST 15 U/L (0-48) 02/15/18 12:15 ALT 26 U/L (19-67) 02/15/18 12:15 Alkaline Phosphatase 71 U/L (50-170) 02/15/18 12:15 Troponin I Less than 0.017 ng/mL (0.00-0.10) 02/15/18 12:15 B-Natriuretic Peptide 613 pg/mL (5-650) 02/15/18 12:15 Total Protein 7.2 gm/dL (6.2-8.2) 02/15/18 12:15 Albumin 3.2 gm/dl (3.4-5.0) L 02/15/18 12:15 TSH 0.344 uIU/mL (0.358-3.74) L 02/15/18 16:42 Assessment/Plan - Assessment/Plan (1) Atrial flutter with rapid ventricular response Assessment: Jayjay is a 77 yo [place] male with atrial flutter/fibrillation with RVR. He was given IV diltiazem in the ER which improved his heart rate. He is on metoprolol orally at home for rate control. Will increase this from 50 BID to 100mg BID. He will be admitted to observation and will monitor heart rate overnight. If rate remains controlled on the higher dose of metoprolol he will be discharged to home tomorrow. Problem: Acute
[2018-02-16] MEDS ORDERED: GLIMEPIRIDE 2 MG TABLET PO SCH (07:00)
[2018-02-16] MEDS ORDERED: LEVOTHYROXINE SODIUM 175 MCG TABLET PO SCH (07:00)
[2018-02-16] MEDS: 0.5 NORMAL SALINE 1,000 ML IV PRN (08:04)
[2018-02-16] MEDS ORDERED: FINASTERIDE 5 MG TABLET PO SCH (09:00)
[2018-02-16] MEDS ORDERED: CHOLECALCIFEROL 1,000 UNIT CAPSULE PO SCH (09:00)
[2018-02-16] MEDS ORDERED: DOCUSATE SODIUM 100 MG CAPSULE PO SCH (09:00)
[2018-02-16] MEDS ORDERED: ASPIRIN 81 MG TAB.CHEW PO SCH (09:00)
[2018-02-16] MEDS ORDERED: SERTRALINE HCL 50 MG TABLET PO SCH (09:00)
[2018-02-16] MEDS: METOPROLOL TARTRATE 100 MG TABLET PO SCH (09:38)
[2018-02-16 09:46] LABS: Prothrombin Time (Patient) 28.2 Seconds (9.0-11.0)
[2018-02-16 09:48] LABS: INR 2.79 INR (0.90-1.10)
[2018-02-16 14:09] LABS: Albumin * 2.7 gm/dl (3.4-5.0); Anion Gap 9.1 mmol/L (6.8-13.8); BUN/Creatinine Ratio 20.3 (9.0-21.6); Bilirubin, Total 0.3 mg/dL (0.0-1.1); Ca. Corrected For Albumin 9.8 mg/dL (8.4-10.2); Calcium * 9.1 mg/dL (7.9-10.9); Carbon Dioxide 27.8 mmol/L (24-32.6); Potassium 4.9 mmol/L (3.4-4.6); Total Protein 6.2 gm/dL (6.2-8.2)
--- NOTE | 2018-02-16 14:30 | DS ---
(1) Atrial flutter with rapid ventricular response Problem: Acute (2) Hyperkalemia Problem: Acute Description of Stay: Jayjay is a 77 yo male that was admitted due to atrial flutter/fibrillation with rapid ventricular response. He has a known history of atrial fibrillation and is on metoprolol 50mg BID and Coumadin. He woke up to shortness of breath and presented to the ER. He was found to have a rapid heart rate of 130 to 140. He was given IV diltiazem and heart rate improved. As he was already on metoprolol for rate control I elected to increase his metoprolol to 100mg BID rather than start him on a new medication of diltiazem. Since increasing his metoprolol to 100mg BID his heart rate has been under good control in the 60s. He has felt his usual and feels able for home discharge. On admission he also had a slightly elevated creatinine above his baseline and a slightly elevate potassium. This were rechecked today and improved. He is ok to be discharged to home and follow up with me in a week. Procedures Performed: none Results and Findings: Lab Pending Results 02/15/18 12:15: WBC 6.8, RBC 4.44 L, Hgb 13.6, Hct 40.2 L, MCV 90.5, MCH 30.6, MCHC 33.8, RDW 13.1, Plt Count 184, MPV 10.0, Immature Gran % (Auto) 0.10, Immature Gran # (Auto) 0.01, Neutrophils % 66.4, Lymphocytes % 12.4 L, Monocytes % 9.9 H, Eosinophils % 10.5 H, Basophils % 0.7, Nucleated RBC % 0.0, Neutrophils # 4.5, Lymphocytes # 0.84 L, Monocytes # 0.7, Eosinophils # 0.7, Absolute Basophils 0.1 02/15/18 12:15: Sodium 141, Plasma Sodium 143 H, Potassium 5.1 H, Chloride 106, Carbon Dioxide 27.7, Anion Gap 12.4, BUN 40 H, Creatinine 2.34 H, Est GFR (Non- Af Amer) 29 L, BUN/Creatinine Ratio 17.1, Random Glucose 196 H, Calcium 9.8, Calcium Adj for Albumin 10.1, Magnesium 1.8, Total Bilirubin 0.3, AST 15, ALT 26, Alkaline Phosphatase 71, Troponin I Less than 0.017, B-Natriuretic Peptide 613, Total Protein 7.2, Albumin 3.2 L 02/15/18 12:15: PT 29.3 H, INR (Anticoag Therapy) 2.90 H 02/15/18 16:42: TSH 0.344 L 02/16/18 09:36: PT 28.2 H, INR (Anticoag Therapy) 2.79 H 02/16/18 13:45: Sodium 138, Plasma Sodium 139, Potassium 4.9 H, Chloride 106, Carbon Dioxide 27.8, Anion Gap 9.1, BUN 44 H, Creatinine 2.17 H, Est GFR (Non-Af Amer) 31 L, BUN/Creatinine Ratio 20.3, Random Glucose 135 H D, Calcium 9.1, Calcium Adj for Albumin 9.8, Total Bilirubin 0.3, AST 18, ALT 22, Alkaline Phosphatase 62, Total Protein 6.2, Albumin 2.7 L Discharge Location: Home Disposition: Home self-care Condition: Good Discharge Activity: Activity as tolerated Discharge Diet: Consistent carbs Referrals: Darell Madrigal DO [Primary Care Provider] - One Week Problem Oriented Discharge Instructions to Patient/Family: Atrial Fibrillation, [id number] Additional Patient Instructions (free text): -Please make TCM appointment unless fci discharge. Thank you! Brittney @ [phone]. Prescriptions (Any new or edited meds): Metoprolol Tartrate [Lopressor] 100 mg PO BID #60 tablet Complete Home Medications List: Complete Home Medication List: Aspirin [Aspirin Chewable] 81 mg PO DAILY 05/21/13 Finasteride 5 mg PO DAILY 05/21/13 Levothyroxine Sodium [Synthroid] 175 mcg PO DAILY 05/21/13 Cholecalciferol (Vitamin D3) [Vitamin D3] 1,000 unit PO DAILY 12/02/16 Docusate Sodium [Colace] 100 mg PO DAILY 02/01/17 Glimepiride [Amaryl] 2 mg PO DAILY 07/17/17 allopurinol 300 mg tablet 300 mg PO DAILY PRN 11/06/17 sertraline 50 mg tablet 50 mg PO DAILY #30 tab 12/21/17 simvastatin 20 mg tablet 20 mg PO QPM 12/21/17 Warfarin Sodium [Coumadin] 2.5 mg PO MOFR 02/15/18 Warfarin Sodium [Coumadin] 5 mg PO SUTUWETHSA 02/15/18 Metoprolol Tartrate [Lopressor] 100 mg PO BID #60 tablet 02/16/18
[2018-02-16 16:54] VITALS: BP 150/79
[2018-02-16] MEDS ORDERED: WARFARIN SODIUM 5 MG TABLET PO SCH (17:00)
== END 2018-02-16 16:53 | disposition home or self-care (01) ==
LOC: ER 11:49 → MS 11:49
PROVIDERS: ADMIT Family Medicine; ATTEND Family Medicine
DX: E11.9 Type 2 diabetes mellitus without complications; E66.9 Obesity, unspecified; E87.5 Hyperkalemia; Z68.30 Body mass index [BMI] 30.0-30.9, adult; Z79.01 Long term (current) use of anticoagulants; Z23 Encounter for immunization; Z79.84 Long term (current) use of oral hypoglycemic drugs; I25.10 Atherosclerotic heart disease of native coronary artery without angina pectoris; Z87.891 Personal history of nicotine dependence; I48.92 Unspecified atrial flutter; I12.9 Hypertensive chronic kidney disease with stage 1 through stage 4 chronic kidney disease, or unspecified chronic kidney disease; E03.9 Hypothyroidism, unspecified; N18.3 Chronic kidney disease, stage 3 (moderate)
CPT/HCPCS: 36415; 71020; 71046; 80053; 83519; 83735; 83880; 84443; 84484; 85025; 85610; 90686; 93005; 94640; 94664; 96361; 96374; 96375; 96376; 99291; G0008; G0378

== ENCOUNTER 2019-04-07 05:09 | Observation (INO) ==
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
[2019-04-07 05:35] LABS: Hematocrit 38.9 % (42.0-52.0); Hemoglobin 12.8 gm/dL (13.5-18.0); Mean Cell Volume 91.5 fl (78-100); Mean Corpuscular Hemoglobin 30.1 pg (27-31); Mean Corpuscular Hgb Conc 32.9 g/dl (32-36); Mean Platelet Volume 9.3 fl (8-11.3); Neutrophil # 7.1 K/mm3 (1.3-6.0); Neutrophil % 78.2 % (42-75.0); Platelet Count 177 K/mm3 (150-450); Red Blood Count 4.25 M/mm3 (4.7-6.0); Red Cell Distribution Width 13.7 % (11.5-14.0); White Blood Count 9.1 K/mm3 (4.0-10.5)
[2019-04-07 05:43] LABS: Anion Gap 12.2 mmol/L (6.8-13.8); BUN/Creatinine Ratio 15.7 (9.0-21.6); Blood Urea Nitrogen 30 mg/dL (6-23); Carbon Dioxide 29.6 mmol/L (24-32.6); Chloride 105 mmol/L (97-106); Glucose * 239 mg/dL (70-110); Potassium 4.8 mmol/L (3.4-4.6); Sodium 142 mmol/L (132-142)
[2019-04-07 05:45] LABS: Prothrombin Time (Patient) 23.2 Seconds (9.1-10.7)
[2019-04-07 05:46] LABS: INR 2.42 INR (0.92-1.08); Partial Thrombolplastin Time 31.9 Seconds (24-32)
[2019-04-07 06:00] LABS: Urine Bilirubin Negative (NEGATIVE); Urine Blood 250 /ul (NEGATIVE); Urine Ketone Negative (NEGATIVE); Urine Nitrite Negative (NEGATIVE); Urine Protein >=300 mg/dL (NEGATIVE); Urine Specific Gravity 1.025 SP.GR. (1.005-1.030); Urine Urobilinogen Normal (NORMAL); Urine pH 6.5 pH (5.0-7.0)
[2019-04-07] MEDS ORDERED: NALBUPHINE HCL 10 MG/ML AMPUL IV ONE (06:06)
[2019-04-07 06:11] LABS: Urine Appearance Slightly Cloudy (CLEAR); Urine Bacteria None Seen; Urine Color Yellow; Urine RBC 25-50 /hpf (0-5); Urine WBC TRACE /hpf (0-5)
[2019-04-07] MEDS ORDERED: NORMAL SALINE 1,000 ML IV PRN (10:18)
[2019-04-07] MEDS ORDERED: traMADol HCL 50 MG TABLET PO PRN (14:19)
[2019-04-07] MEDS ORDERED: ACETAMINOPHEN 500 MG TABLET PO PRN (16:25)
[2019-04-07] MEDS ORDERED: WARFARIN SODIUM 5 MG TABLET PO SCH (17:00)
[2019-04-07] MEDS: SIMVASTATIN 20 MG TABLET PO SCH (22:00)
[2019-04-07] MEDS: METOPROLOL TARTRATE 100 MG TABLET PO SCH (22:00)
[2019-04-07] MEDS: HYDROcodone/ACETAMINOPHEN 1 EACH TABLET PO PRN (22:01)
--- NOTE | 2019-04-07 23:19 | HP ---
Chief Complaint - Chief Complaint Date of Service: 04/07/19 Time of Service: 16:00 Chief Complaint: Frequent falls, low back pain History of Present Illness: Jayjay is an 78 yo male with hx of DMII, TIA, HTN, and has been having frequent falls. He was seen in clinic recently and referred to outpatient PT. He was scheduled to see PT for the first time today but fell going into the bathroom at home. His reports there is a small step up into the bathroom. He believes he tripped on this step. He denies dizziness or vertigo. He denies loss of consciousness. He reports a fall two days ago as well. He reports his low back was not hurting before this fall. He presented to the [facility] ER and bloodwork and imaging was only abnormal from his baseline by evidence of L1 fracture. He was given nubain in the ER for pain and developed altered mentation and hypoxia. He was placed on oxygen and his oxygen saturation improved >90%. Medical History (Last Reviewed 04/07/19 @ 13:23 by Jess Harry RN) Atrial fibrillation (Chronic) Onset Date: ~05/2017 Hypovitaminosis D (Chronic) Onset Date: Unknown Stenosis of right carotid artery (Chronic) Onset Date: Unknown Secondary hyperparathyroidism (of renal origin) (Chronic) Onset Date: Unknown Psoriasis (Chronic) Onset Date: Unknown Onychomycosis (Chronic) Onset Date: Unknown Obesity (Chronic) Onset Date: Unknown Hypothyroidism (Chronic) Onset Date: Unknown Hypertension (Chronic) Onset Date: Unknown Hyperlipidemia (Chronic) Onset Date: Unknown Gout (Chronic) Onset Date: Unknown GERD (gastroesophageal reflux disease) (Chronic) Onset Date: Unknown Diabetes mellitus, type II (Chronic) Onset Date: Unknown Coronary artery disease (Chronic) Onset Date: 02/22/13 Chronic kidney disease, stage 3 (Chronic) Onset Date: Unknown Renal failure (Chronic) Onset Date: Unknown Arthritis (Chronic) Onset Date: Unknown Metabolic encephalopathy Onset Date: 01/17/19 Admitted to [facility] on 01/17/2019. Discharged home on 01/21/2019. BPH (benign prostatic hyperplasia) Onset Date: Unknown Gastritis Onset Date: ~05/2017 Headache Onset Date: Unknown Hyperkalemia Onset Date: Unknown Kidney stone Onset Date: Unknown Migraine Onset Date: Unknown Pneumonia Onset Date: Unknown Proteinuria Onset Date: Unknown Superficial thrombophlebitis of arm Onset Date: 01/17/19 Left forearm. [facility]. Toe pain, left Onset Date: Unknown Atrial flutter Onset Date: 06/09/17 Myocardial infarction Onset Date: Unknown x3 Surgical History: Surgical History (Last Reviewed 04/07/19 @ 13:24 by Jess Harry RN) H/O colonoscopy Onset Date: ~2008 [place]: WNL History of PTCA Onset Date: Unknown History of angioplasty Onset Date: Unknown x3 History of back surgery Onset Date: 1983 Dr. Perry; Lumbar laminectomy L4 History of cholecystectomy Onset Date: ~1975 History of esophagogastroduodenoscopy (EGD) Onset Date: ~2008 History of excision of epidermal inclusion cyst Onset Date: 09/19/13 Dr. Lars Conroy, [facility]. Right groin. Family History: Family History (Last Reviewed 04/07/19 @ 13:24 by Jess Harry RN) Mother , age 84 Diabetes Breast cancer Social History: (Last Reviewed 04/07/19 @ 05:24 by Sharda Carrillo RN) Social History: adopted: No snf: No household members: spouse number of children: 3 number of grandchildren: 11 current occupational status: retired Service: Yes Service comment: 1 yr branch: [employer] assignments: [employer] known or potential exposure: none Tobacco: Smoking Status: Never smoker Tobacco: How many years used: 36 Alcohol: alcohol intake: former Substance Use: substance use type: does not use Dietary Habits: caffeine: Yes caffeine comment: 1 cup of coffee, and 1 diet Mt. Dew daily. Type: coffee, carbonated beverages Nadiya/Samaritan: special nadiya needs: No Review Of Systems (GEN) - Review of Systems Generalized/Overall Review: Present: Weakness. Absent: Chills, Fever EENTM: Present: No Symptoms Reported Respiratory: Absent: Cough, Shortness of Breath Cardiac: Absent: Chest Pain, Edema Abdominal: Absent: Nausea, Vomiting Genitourinary: Present: No Symptoms Reported Musculoskeletal: Present: Joint Pain, Back Pain Neurological: Present: Depressed, Weakness. Absent: Headache Skin: Present: No Symptoms Reported Endocrine: Present: No Symptoms Reported Immunizations: IMMUNIZATION HX Immunizations Up to Date Yes History of Influenza Vaccine Yes Hx Pneumococcal Vaccination Yes Allergies/Adverse Reactions: Allergies Allergy/AdvReac Type Severity Reaction Status Date / Time Penicillins Allergy Severe Hives Verified 04/07/19 05:24 Home Medications: HOME MEDICATIONS simvastatin 20 mg tablet 20 mg PO QPM 12/21/17 [Last Taken 01/16/19] levothyroxine 150 mcg tablet 150 mcg PO DAILY #30 tab 12/23/18 [Last Taken 01/17/19] Cholecalciferol [Vitamin D] 1,000 unit PO DAILY 01/17/19 [Last Taken 01/17/19] Multivitamin [One Daily Multivitamin] 1 ea PO DAILY 01/17/19 [Last Taken 01/17/19] Vitamin B Complex Vit C No.3 [B Complex with Vitamin C] 1 ea PO DAILY 01/17/19 [Last Taken 01/17/19] Warfarin Sodium [Coumadin] 2.5 mg PO MOFR 01/17/19 [Last Taken 01/17/19] glimepiride 2 mg tablet 2 mg PO DAILY #90 tab 02/14/19 [Last Taken Unknown] warfarin 5 mg tablet 5 mg PO SUTUWETHSA #90 tab 03/07/19 [Last Taken Unknown] metoprolol tartrate 100 mg tablet 100 mg PO BID #60 tab 03/14/19 [Last Taken Unknown] sertraline 50 mg tablet 50 mg PO DAILY #90 tab 03/25/19 [Last Taken Unknown] Exam - Exam Vital Signs: Vital Signs - Last Taken Temp 36.9 C 04/07/19 18:30 Pulse 77 04/07/19 22:00 Resp 18 04/07/19 18:30 BP 150/88 H 04/07/19 22:00 Pulse Ox 96 04/07/19 18:30 Constitutional: Present: Alert, Oriented x3, Cooperative, No distress ENT Exam: Present: hearing grossly normal Eye Exam: bilateral eye: normal inspection Respiratory: Present: lungs clear, normal breath sounds Cardiovascular/Chest: Present: regular rate, rhythm, no murmur Peripheral Pulses: radial (R): 2+, radial (L): 2+ Abdomen: Present: Normal bowel sounds, soft, nontender, nondistended Skin Exam: Present: normal color, warm/dry, no cyanosis Appearance: Present: appropriate appearance, appropriate insight Eye contact: Present: cooperative, good eye contact, normal speech Thoughts: Present: normal thought pattern, no apparent hallucination Diagnostic Studies: Abnormal Lab Results 04/07/19 04/07/19 04/07/19 Range/Units 05:30 05:30 05:30 RBC 4.25 L (4.7-6.0) M/mm3 Hgb 12.8 L (13.5-18.0) gm/dL Hct 38.9 L (42.0-52.0) % Immature Gran % (Auto) 1.10 H (0.001-0.429) % Immature Gran # (Auto) 0.10 H (0.000-0.0310) K/mm3 Neutrophils % 78.2 H (42-75.0) % Lymphocytes % 7.2 L (20-51) % Eosinophils % 6.3 H (0.0-3.0) % Neutrophils # 7.1 H (1.3-6.0) K/mm3 Lymphocytes # 0.65 L (1.5-3.5) k/mm3 PT 23.2 H (9.1-10.7) Seconds INR (Anticoag Therapy) 2.42 H (0.92-1.08) INR Plasma Sodium 144 H (130-142) mmol/L Potassium 4.8 H (3.4-4.6) mmol/L BUN 30 H (6-23) mg/dL Creatinine 1.91 H (0.4-1.4) mg/dL Est GFR (Non-Af Amer) 36 L (60-130) mL/min Random Glucose 239 H (70-110) mg/dL Urine Protein (NEGATIVE) mg/dL Urine Glucose (UA) (NEGATIVE) mg/dL Urine Blood (NEGATIVE) /ul Prot Sulfosalicylic Acd (0) mg/dL Urine RBC (0-5) /hpf 04/07/19 Range/Units 05:56 RBC (4.7-6.0) M/mm3 Hgb (13.5-18.0) gm/dL Hct (42.0-52.0) % Immature Gran % (Auto) (0.001-0.429) % Immature Gran # (Auto) (0.000-0.0310) K/mm3 Neutrophils % (42-75.0) % Lymphocytes % (20-51) % Eosinophils % (0.0-3.0) % Neutrophils # (1.3-6.0) K/mm3 Lymphocytes # (1.5-3.5) k/mm3 PT (9.1-10.7) Seconds INR (Anticoag Therapy) (0.92-1.08) INR Plasma Sodium (130-142) mmol/L Potassium (3.4-4.6) mmol/L BUN (6-23) mg/dL Creatinine (0.4-1.4) mg/dL Est GFR (Non-Af Amer) (60-130) mL/min Random Glucose (70-110) mg/dL Urine Protein >=300 H (NEGATIVE) mg/dL Urine Glucose (UA) 250 H (NEGATIVE) mg/dL Urine Blood 250 H (NEGATIVE) /ul Prot Sulfosalicylic Acd 4+ H (0) mg/dL Urine RBC 25-50 H (0-5) /hpf Laboratory Results WBC 9.1 K/mm3 (4.0-10.5) 04/07/19 05:30 RBC 4.25 M/mm3 (4.7-6.0) L 04/07/19 05:30 Hgb 12.8 gm/dL (13.5-18.0) L 04/07/19 05:30 Hct 38.9 % (42.0-52.0) L 04/07/19 05:30 MCV 91.5 fl (78-100) 04/07/19 05:30 MCH 30.1 pg (27-31) 04/07/19 05:30 MCHC 32.9 g/dl (32-36) 04/07/19 05:30 RDW 13.7 % (11.5-14.0) 04/07/19 05:30 Plt Count 177 K/mm3 (150-450) 04/07/19 05:30 MPV 9.3 fl (8-11.3) 04/07/19 05:30 Immature Gran % (Auto) 1.10 % (0.001-0.429) H 04/07/19 05:30 Immature Gran # (Auto) 0.10 K/mm3 (0.000-0.0310) H 04/07/19 05:30 Neutrophils % 78.2 % (42-75.0) H 04/07/19 05:30 Lymphocytes % 7.2 % (20-51) L 04/07/19 05:30 Monocytes % 6.5 % (0.0-9) 04/07/19 05:30 Eosinophils % 6.3 % (0.0-3.0) H 04/07/19 05:30 Basophils % 0.7 % (0.0-1.0) 04/07/19 05:30 Nucleated RBC % 0.0 k/mm3 (0-1) 04/07/19 05:30 Neutrophils # 7.1 K/mm3 (1.3-6.0) H 04/07/19 05:30 Lymphocytes # 0.65 k/mm3 (1.5-3.5) L 04/07/19 05:30 Monocytes # 0.6 k/mm3 (0.0-1.0) 04/07/19 05:30 Eosinophils # 0.6 k/mm3 (0.0-0.7) 04/07/19 05:30 Absolute Basophils 0.1 k/mm3 (0.0-0.1) 04/07/19 05:30 PT 23.2 Seconds (9.1-10.7) H 04/07/19 05:30 INR (Anticoag Therapy) 2.42 INR (0.92-1.08) H 04/07/19 05:30 PTT (Gali) 31.9 Seconds (24-32) 04/07/19 05:30 Sodium 142 mmol/L (132-142) 04/07/19 05:30 Plasma Sodium 144 mmol/L (130-142) H 04/07/19 05:30 Potassium 4.8 mmol/L (3.4-4.6) H 04/07/19 05:30 Chloride 105 mmol/L (97-106) 04/07/19 05:30 Carbon Dioxide 29.6 mmol/L (24-32.6) 04/07/19 05:30 Anion Gap 12.2 mmol/L (6.8-13.8) 04/07/19 05:30 BUN 30 mg/dL (6-23) H 04/07/19 05:30 Creatinine 1.91 mg/dL (0.4-1.4) H 04/07/19 05:30 Est GFR (Non-Af Amer) 36 mL/min (60-130) L 04/07/19 05:30 BUN/Creatinine Ratio 15.7 (9.0-21.6) 04/07/19 05:30 Random Glucose 239 mg/dL (70-110) H 04/07/19 05:30 Calcium 9.0 mg/dL (7.9-10.9) 04/07/19 05:30 Urine Color Yellow 04/07/19 05:56 Urine Appearance Slightly cloudy (CLEAR) 04/07/19 05:56 Urine pH 6.5 pH (5.0-7.0) 04/07/19 05:56 Ur Specific [place] 1.025 SP.GR. (1.005-1.030) 04/07/19 05:56 Urine Protein >=300 mg/dL (NEGATIVE) H 04/07/19 05:56 Urine Glucose (UA) 250 mg/dL (NEGATIVE) H 04/07/19 05:56 Urine Ketones Negative mg/dL (NEGATIVE) 04/07/19 05:56 Urine Blood 250 /ul (NEGATIVE) H 04/07/19 05:56 Urine Nitrate Negative (NEGATIVE) 04/07/19 05:56 Urine Bilirubin Negative mg/dl (NEGATIVE) 04/07/19 05:56 Prot Sulfosalicylic Acd 4+ mg/dL (0) H 04/07/19 05:56 Urine Urobilinogen Normal EU/dl (NORMAL) 04/07/19 05:56 Ur Leukocyte Esterase Negative /ul (NEGATIVE) 04/07/19 05:56 Urine RBC 25-50 /hpf (0-5) H 04/07/19 05:56 Urine WBC Trace /hpf (0-5) 04/07/19 05:56 Ur Epithelial Cells Trace /hpf (0-5) 04/07/19 05:56 Urine Bacteria None seen (NONE) 04/07/19 05:56 Urine Culture Comments No culture indicated 04/07/19 05:56 Assessment/Plan - Narrative Narrative: Jayjay is an 78 yo male with L1 fracture after fall. He has been having frequent falls at home due to lower extremity weakness. He was given nubain in the ER, which caused an episode of delirium and acute respiratory failure with hypoxia. He was placed on oxygen at 2lpm to keep oxygen saturation above 90%. He is feeling better at this time. He has severe back pain related to L1 fracture. Will try and control pain medication while being cautious about causing any more respiratory depression. Will start him on tramadol and adjust as needed. Will consult PT and wean from oxygen. Will admit to observation at this time. - Assessment/Plan (1) Lumbar vertebral fracture Problem: Acute Qualifiers: Encounter type: initial encounter Lumbar vertebra fracture level: L1 Fracture type: closed Fracture morphology: unspecified fracture morphology Qualified Code(s): S32.019A - Unspecified fracture of first lumbar vertebra, initial encounter for closed fracture (2) Frequent falls Problem: Acute (3) Lower extremity weakness Problem: Acute Qualifiers: Laterality: bilateral Qualified Code(s): R29.898 - Other symptoms and signs involving the musculoskeletal system (4) Diabetes mellitus, type II Problem: Chronic Qualifiers: Diabetes mellitus fdc insulin use: without fdc use Diabetes mellitus complication status: without complication Qualified Code(s): E11.9 - Type 2 diabetes mellitus without complications (5) Delirium Problem: Acute (6) Acute respiratory failure with hypoxia Problem: Acute
[2019-04-08] MEDS: NYSTATIN 15 APPL BTL TP SCH ×3 (00:09→20:40)
[2019-04-08] MEDS: HYDROcodone/ACETAMINOPHEN 1 EACH TABLET PO PRN ×3 (06:37→20:39)
[2019-04-08] MEDS: GLIMEPIRIDE 2 MG TABLET PO SCH (06:40)
[2019-04-08] MEDS: LEVOTHYROXINE SODIUM 150 MCG TABLET PO SCH (06:40)
[2019-04-08] MEDS: CHOLECALCIFEROL 1,000 UNIT CAPSULE PO SCH (08:43)
[2019-04-08] MEDS: METOPROLOL TARTRATE 100 MG TABLET PO SCH ×2 (08:43→20:39)
[2019-04-08] MEDS: MULTIVITAMINS 1 CAP CAPSULE PO SCH (08:43)
[2019-04-08] MEDS: SERTRALINE HCL 50 MG TABLET PO SCH (08:44)
[2019-04-08 10:50] LABS: Prothrombin Time (Patient) 30.1 Seconds (9.1-10.7)
[2019-04-08 10:51] LABS: INR 3.18 INR (0.92-1.08)
--- NOTE | 2019-04-08 12:05 | PN ---
Subjective - Date and Time Seen Date: 04/08/19 Time: 11:59 Subjective Narrative: Jayjay is not better today. His pain is uncontrolled and he rates it 10/10. PT attempted to evaluate him but was unable to sit him up in bed or move him to the edge of bed because of severe pain. He has not had a bowel movement. He has tolerated tramadol and hydrocodone, but they have not controlled his pain. I will try and increase the strength of pain medication, but I am cautious as he had respiratory depression with hypoxia yesterday after getting nubain. Objective - Vitals Vitals: Last Vital Signs Temp 36.4 C 04/08/19 09:38 Pulse 67 04/08/19 10:00 Resp 16 04/08/19 09:38 BP 135/64 04/08/19 09:38 Pulse Ox 93 04/08/19 10:25 - Abnormal Lab Findings Abnormal Lab Findings: Abnormal Lab Results 04/08/19 Range/Units 10:39 PT 30.1 H (9.1-10.7) Seconds INR (Anticoag Therapy) 3.18 H (0.92-1.08) INR - Exam Constitutional: Present: Alert, Oriented x3, Cooperative ENT Exam: Present: hearing grossly normal Respiratory: Present: lungs clear, no respiratory distress Cardiovascular/Chest: Present: irregularly irregular Abdomen: Present: soft, nontender, nondistended, hypoactive Skin Exam: Present: normal color, warm/dry, no cyanosis Assessment/Plan Plan Narrative: Jayjay has uncontrolled pain secondary to L1 fracture. This could potentially be unstable and needs an MRI of his lumbar spine to further evaluate as he is unable to work with PT due to pain. He cannot move in bed without severe pain. He has constipation, will increase bowel regimen. He is urinating without difficulty. He is not able to be discharged to home as he cannot move and could potentially have an unstable fracture or neurological compromise. Will plan to admit to inpatient, evaluate with lumbar MRI, continue to work on pain control so that he can work with PT. He has tried IV pain medications and failed due to respiratory depression with hypoxia. He is now weaned off the oxygen. I am trying to control the pain with oral medications but unsuccessful so far. Will gradually increase strength of pain medication and monitor closely. - Problems/Diagnosis (1) Lumbar vertebral fracture Problem: Acute Qualifiers: Encounter type: initial encounter Lumbar vertebra fracture level: L1 Fracture type: closed Fracture morphology: unspecified fracture morphology Qualified Code(s): S32.019A - Unspecified fracture of first lumbar vertebra, initial encounter for closed fracture (2) Frequent falls Problem: Acute (3) Lower extremity weakness Problem: Acute Qualifiers: Laterality: bilateral Qualified Code(s): R29.898 - Other symptoms and signs involving the musculoskeletal system (4) Diabetes mellitus, type II Problem: Chronic Qualifiers: Diabetes mellitus watermelon harvesting supervisor insulin use: without watermelon harvesting supervisor use Diabetes mellitus complication status: without complication Qualified Code(s): E11.9 - Type 2 diabetes mellitus without complications (5) Delirium Problem: Acute (6) Acute respiratory failure with hypoxia Problem: Acute
[2019-04-08] MEDS ORDERED: WARFARIN SODIUM 2.5 MG TABLET PO SCH (17:00)
[2019-04-08] MEDS: SIMVASTATIN 20 MG TABLET PO SCH (20:39)
[2019-04-09] MEDS: HYDROcodone/ACETAMINOPHEN 1 EACH TABLET PO PRN (04:06)
[2019-04-09 06:19] LABS: Prothrombin Time (Patient) 28.8 Seconds (9.1-10.7)
[2019-04-09 06:26] LABS: INR 3.04 INR (0.92-1.08)
[2019-04-09] MEDS: GLIMEPIRIDE 2 MG TABLET PO SCH (06:43)
[2019-04-09] MEDS: LEVOTHYROXINE SODIUM 150 MCG TABLET PO SCH (06:43)
--- NOTE | 2019-04-09 07:32 | PN ---
Subjective - Date and Time Seen Date: 04/09/19 Time: 07:15 Subjective Narrative: Patient is awake for my exam, and able to answer questions, but responds "I don't know" to many of them. His pain is still uncontrolled. Objective - Review of Systems Respiratory: Denies: Shortness of Breath Cardiac: Denies: Chest Pain, Edema Abdominal: Denies: Vomiting Genitourinary Symptoms: Reports: No Symptoms Reported Musculoskeletal Complaints: Reports: Back Pain Neurological: Reports: No Symptoms Reported - Vitals Vitals: Last Vital Signs Temp 37.0 C 04/09/19 06:55 Pulse 68 04/09/19 06:55 Resp 16 04/09/19 06:55 BP 146/77 04/09/19 06:55 Pulse Ox 92 L 04/09/19 06:55 - Abnormal Lab Findings Abnormal Lab Findings: Abnormal Lab Results 04/08/19 04/09/19 Range/Units 10:39 05:30 PT 30.1 H 28.8 H (9.1-10.7) Seconds INR (Anticoag Therapy) 3.18 H 3.04 H (0.92-1.08) INR - Exam Constitutional: Present: Alert, Cooperative, Elderly Respiratory: Present: normal breath sounds, no respiratory distress Cardiovascular/Chest: Present: regular rate, rhythm Abdomen: Present: soft, nontender Extremity: Absent: lower extremity edema Neurologic: Present: other - able to move lower extremities without difficulty. Absent: motor weakness, sensory deficit Assessment/Plan - Problems/Diagnosis (1) Lumbar vertebral fracture Problem: Acute Qualifiers: Encounter type: initial encounter Lumbar vertebra fracture level: L1 Fracture type: closed Fracture morphology: unspecified fracture morphology Qualified Code(s): S32.019A - Unspecified fracture of first lumbar vertebra, initial encounter for closed fracture Narrative: Chance fracture of L1. Have been unable to control pain thus far. He had respiratory depression initially with nubain in the ED, so will add continuous pulse ox. Will increase his narcotic from 5-325 norco to 10 mg oxycodone q6h. His is concerned about dependence, so will decrease as soon as possible. Will need to obtain TLSO brace, and he is to be on bedrest until we have that TLSO in place. This particular fracture can potentially have instability requiring surgery, but he has no neurologic deficits currently. We will need to transfer should these develop. (2) Diabetes mellitus, type II Problem: Chronic Qualifiers: Diabetes mellitus long term care administrator insulin use: without correction use Diabetes mellitus complication status: without complication Qualified Code(s): E11.9 - Type 2 diabetes mellitus without complications Narrative: Admission glucose was 239. He takes glimepiride at home. We will add glucose checks and sliding scale insulin to be used as needed. With his dementia, the glucose checks could cause more discomfort, pain, and confusion. If his blood sugar is well controlled over the next 24 hours, will discontinue the glucose checks and the sliding scale insulin. (3) Coronary artery disease Problem: Chronic (4) Chronic kidney disease, stage 3 Problem: Chronic Narrative: Admission creatinine 1.91. (5) Dementia Problem: Suspected Narrative: His reports it was diagnosed in [place]. He lives at home with his . He may need to go to a facility after discharge. We will see how he does with physical therapy after he gets his brace. (6) Hyperkalemia Problem: Acute Narrative: Potassium was 4.8 on admission. Recheck pending for the morning. His reports this is a baseline problem.
[2019-04-09] MEDS: oxyCODONE HCL 5 MG TABLET PO SCH ×3 (08:13→18:46)
[2019-04-09] MEDS: CHOLECALCIFEROL 1,000 UNIT CAPSULE PO SCH (08:13)
[2019-04-09] MEDS: METOPROLOL TARTRATE 100 MG TABLET PO SCH ×2 (08:13→21:18)
[2019-04-09] MEDS: NYSTATIN 15 APPL BTL TP SCH ×2 (08:14→21:18)
[2019-04-09] MEDS: SERTRALINE HCL 50 MG TABLET PO SCH (08:14)
[2019-04-09] MEDS: MULTIVITAMINS 1 CAP CAPSULE PO SCH (08:14)
[2019-04-09] MEDS: INSULIN LISPRO 100 UNITS/ML VIAL SC SCH ×3 (11:20→21:08)
[2019-04-09] MEDS ORDERED: oxyCODONE HCL 5 MG TABLET PO PRN (17:37)
[2019-04-09] MEDS: SIMVASTATIN 20 MG TABLET PO SCH (21:18)
[2019-04-10] MEDS: oxyCODONE HCL 5 MG TABLET PO SCH ×3 (01:52→16:53)
[2019-04-10 06:39] LABS: Prothrombin Time (Patient) 22.4 Seconds (9.1-10.7)
[2019-04-10 06:45] LABS: Albumin * 2.9 gm/dl (3.4-5.0); Anion Gap 12.3 mmol/L (6.8-13.8); BUN/Creatinine Ratio 18.4 (9.0-21.6); Bilirubin, Total 0.7 mg/dL (0.0-1.1); Ca. Corrected For Albumin 10.1 mg/dL (8.4-10.2); Calcium * 9.5 mg/dL (7.9-10.9); Potassium 4.3 mmol/L (3.4-4.6); Total Protein 6.9 gm/dL (6.2-8.2)
[2019-04-10 06:49] LABS: INR 2.34 INR (0.92-1.08)
[2019-04-10] MEDS: INSULIN LISPRO 100 UNITS/ML VIAL SC SCH ×4 (06:53→21:14)
[2019-04-10] MEDS: LEVOTHYROXINE SODIUM 150 MCG TABLET PO SCH (06:54)
[2019-04-10] MEDS: GLIMEPIRIDE 2 MG TABLET PO SCH (08:07)
[2019-04-10] MEDS: CHOLECALCIFEROL 1,000 UNIT CAPSULE PO SCH (08:07)
[2019-04-10] MEDS: METOPROLOL TARTRATE 100 MG TABLET PO SCH ×2 (08:08→21:15)
[2019-04-10] MEDS: MULTIVITAMINS 1 CAP CAPSULE PO SCH (08:08)
[2019-04-10] MEDS: NYSTATIN 15 APPL BTL TP SCH ×2 (08:08→21:16)
[2019-04-10] MEDS: SERTRALINE HCL 50 MG TABLET PO SCH (08:08)
--- NOTE | 2019-04-10 13:04 | PN ---
Subjective - Date and Time Seen Date: 04/10/19 Time: 09:30 Subjective Narrative: Patient seems pleasantly confused. His reports better pain control with 5 mg oxycodone. She is working on renting a lift chair, getting a shower chair, and various equipment at home. He worked with therapy yesterday, but required a significant amount of verbal encouragement. Objective - Review of Systems Generalized/Overall Review: Denies: Fever Respiratory: Reports: No Symptoms Reported Cardiac: Reports: No Symptoms Reported Abdominal: Reports: No Symptoms Reported Genitourinary Symptoms: Reports: No Symptoms Reported Musculoskeletal Complaints: Reports: Back Pain Neurological: Reports: Weakness - Vitals Vitals: Last Vital Signs Temp 36.9 C 04/10/19 10:29 Pulse 67 04/10/19 10:29 Resp 16 04/10/19 10:29 BP 135/70 04/10/19 10:29 Pulse Ox 93 04/10/19 10:29 - Abnormal Lab Findings Abnormal Lab Findings: Abnormal Lab Results 04/10/19 04/10/19 Range/Units 06:30 06:30 PT 22.4 H (9.1-10.7) Seconds INR (Anticoag Therapy) 2.34 H (0.92-1.08) INR BUN 39 H (6-23) mg/dL Creatinine 2.12 H (0.4-1.4) mg/dL Est GFR (Non-Af Amer) 32 L (60-130) mL/min Albumin 2.9 L (3.4-5.0) gm/dl - Exam Constitutional: Present: Alert, Elderly Respiratory: Present: normal breath sounds, no respiratory distress Cardiovascular/Chest: Present: regular rate, rhythm Abdomen: Present: soft, nontender, other - TLSO brace in place Extremity: Absent: lower extremity edema Neurologic: Present: no motor/sensory deficits Eye contact: Present: good eye contact Thoughts: Present: other - does not answer all questions appropriately Assessment/Plan - Problems/Diagnosis (1) Lumbar vertebral fracture Problem: Acute Qualifiers: Encounter type: initial encounter Lumbar vertebra fracture level: L1 Fracture type: closed Fracture morphology: unspecified fracture morphology Qualified Code(s): S32.019A - Unspecified fracture of first lumbar vertebra, initial encounter for closed fracture Narrative: Pain management has been difficulty. He initially had respiratory depression with nubain, than pain was uncontrolled with 5 mg norco. 10 mg oxycodone was tried yesterday, and he was more somnolent and confused. 5 mg oxycodone started last evening, and seems to managing his pain, but therapy has not yet worked with him today. TLSO brace in place since yesterday afternoon. His is working on getting equipment for him in the house. His chance fracture was the result of a ground level fall at home, and he is at increased risk of falls. Would like for him to go to a facility for strengthening, but that is not an option financially. Unable to make arrangements for home health with PT today, and will try to get this arranged tomorrow as I work on a pain management regimen for home. He is on warfarin, and will need to ensure his fracture does not result in uncontrolled bleeding at the fracture site. 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 If this remains, will need to add SSI. Continue home glimepiride. (3) Coronary artery disease Problem: Chronic (4) Chronic kidney disease, stage 3 Problem: Chronic Narrative: Creatinine and GFR appear to be at baseline. (5) Dementia Problem: Suspected (6) Atrial fibrillation Problem: Chronic Qualifiers: Atrial fibrillation type: chronic Narrative: INR of 2.13 today. Continue current warfarin dose and bid metoprolol. Heart rate is controlled, in the 60's. (7) Hyperkalemia Problem: Resolved Narrative: K+ of 4.3 today.
[2019-04-10] MEDS: SENNOSIDES 8.6 MG TABLET PO PRN ×2 (13:39→16:51)
[2019-04-10] MEDS: BISACODYL 5 MG TABLET.DR PO PRN ×2 (13:39→16:50)
[2019-04-10] MEDS: POLYETHYLENE GLYCOL 3350 17 GM PACKET PO SCH (13:45)
[2019-04-10] MEDS ORDERED: WARFARIN SODIUM 5 MG TABLET PO SCH (17:00)
[2019-04-10] MEDS: SIMVASTATIN 20 MG TABLET PO SCH (21:15)
[2019-04-11] MEDS ORDERED: oxyCODONE HCL 5 MG TABLET ONE ×2 (02:41→09:42)
[2019-04-11] MEDS: oxyCODONE HCL 5 MG TABLET PO SCH ×2 (02:43→09:43)
[2019-04-11] MEDS: METOPROLOL TARTRATE 100 MG TABLET PO SCH (08:37)
[2019-04-11] MEDS: POLYETHYLENE GLYCOL 3350 17 GM PACKET PO SCH (08:37)
[2019-04-11] MEDS: GLIMEPIRIDE 2 MG TABLET PO SCH (08:38)
[2019-04-11] MEDS: LEVOTHYROXINE SODIUM 150 MCG TABLET PO SCH (08:38)
[2019-04-11] MEDS: SERTRALINE HCL 50 MG TABLET PO SCH (08:38)
[2019-04-11] MEDS: MULTIVITAMINS 1 CAP CAPSULE PO SCH (08:38)
[2019-04-11] MEDS: INSULIN LISPRO 100 UNITS/ML VIAL SC SCH ×2 (08:38→11:48)
[2019-04-11] MEDS: CHOLECALCIFEROL 1,000 UNIT CAPSULE PO SCH (08:38)
[2019-04-11] MEDS: NYSTATIN 15 APPL BTL TP SCH (09:43)
--- NOTE | 2019-04-11 12:41 | DS ---
(1) Lumbar vertebral fracture Problem: Acute Qualifiers: Encounter type: initial encounter Lumbar vertebra fracture level: L1 Fracture type: closed Fracture morphology: unspecified fracture morphology Qualified Code(s): S32.019A - Unspecified fracture of first lumbar vertebra, initial encounter for closed fracture (2) Frequent falls Problem: Acute (3) Lower extremity weakness Problem: Acute Qualifiers: Laterality: bilateral Qualified Code(s): R29.898 - Other symptoms and signs involving the musculoskeletal system (4) Diabetes mellitus, type II Problem: Chronic Qualifiers: Diabetes mellitus senior care insulin use: without senior care use Diabetes mellitus complication status: without complication Qualified Code(s): E11.9 - Type 2 diabetes mellitus without complications (5) Delirium Problem: Acute (6) Acute respiratory failure with hypoxia Problem: Acute Date of Discharge:: 04/11/19 Hospital Course: Jayjay is an 78 yo male with progressing lower extremity weakness and declining chronic dementia with frequent falls. He fell and subsequently had severe low back pain on 04/07/19. He presented to the [facility] ER and xray showed L1 fracture. He was admitted due to severity of pain as he was unable to move due to pain. He was initially given nubain for pain control but this caused acute delirium on top of his chronic dementia with acute respiratory failure with hypoxia due to respiratory drive suppression. He was changed to oral pain medications of tramadol but this was ineffective for pain control. He was also trialled on hydrocodone and oxycodone. Hydrocodone was not strong enough and oxycodone 10mg was too strong. However Oxycodone 5mg prn appears to work well. Due to the continued severity of pain a MRI was completed which showed a bony chance fracture of L1. He has no neurological compromise. He was fitted with a TLSO brace and with oxycodone 5mg prn was able to ambulate. He will be discharged to home with [facility] home health with PT. Due to L1 fracture it is physically difficult for him to leave the home, making him homebound. He needs Home PT for strengthening and treatment due to L1 fracture and lower extremity weakness. He needs nursing for monitoring of pain and medication set up. He also has history of diabetes and hypertension that needs to be monitored. Time was spent today in direct patient care in order to evaluate for need for home health. Procedures Performed: none Results and Findings: Lab Pending Results 04/07/19 05:30: WBC 9.1, RBC 4.25 L, Hgb 12.8 L, Hct 38.9 L, MCV 91.5, MCH 30.1, MCHC 32.9, RDW 13.7, Plt Count 177, MPV 9.3, Immature Gran % (Auto) 1.10 H, Immature Gran # (Auto) 0.10 H, Neutrophils % 78.2 H, Lymphocytes % 7.2 L, Monocytes % 6.5, Eosinophils % 6.3 H, Basophils % 0.7, Nucleated RBC % 0.0, Neutrophils # 7.1 H, Lymphocytes # 0.65 L, Monocytes # 0.6, Eosinophils # 0.6, Absolute Basophils 0.1 04/07/19 05:30: PT 23.2 H, INR (Anticoag Therapy) 2.42 H, PTT ([place]) 31.9 04/07/19 05:30: Sodium 142, Plasma Sodium 144 H, Potassium 4.8 H, Chloride 105, Carbon Dioxide 29.6, Anion Gap 12.2, BUN 30 H, Creatinine 1.91 H, Est GFR (Non- Af Amer) 36 L, BUN/Creatinine Ratio 15.7, Random Glucose 239 H, Calcium 9.0 04/07/19 05:56: Urine Color Yellow, Urine Appearance Slightly cloudy, Urine pH 6.5, Ur Specific [place] 1.025, Urine Protein >=300 H, Urine Glucose (UA) 250 H, Urine Ketones Negative, Urine Blood 250 H, Urine Nitrate Negative, Urine Bilirubin Negative, Prot Sulfosalicylic Acd 4+ H, Urine Urobilinogen Normal, Ur Leukocyte Esterase Negative, Urine RBC 25-50 H, Urine WBC Trace, Ur Epithelial Cells Trace, Urine Bacteria None seen, Urine Culture Comments No culture indicat ed 04/08/19 10:39: PT 30.1 H, INR (Anticoag Therapy) 3.18 H 04/09/19 05:30: PT 28.8 H, INR (Anticoag Therapy) 3.04 H 04/10/19 06:30: PT 22.4 H, INR (Anticoag Therapy) 2.34 H 04/10/19 06:30: Sodium 140, Plasma Sodium 140, Potassium 4.3, Chloride 102, Carbon Dioxide 30.0, Anion Gap 12.3, BUN 39 H, Creatinine 2.12 H, Est GFR (Non- Af Amer) 32 L, BUN/Creatinine Ratio 18.4, Random Glucose 81, Calcium 9.5, Calcium Adj for Albumin 10.1, Total Bilirubin 0.7, AST 22, ALT 22, Alkaline Phosphatase 84, Total Protein 6.9, Albumin 2.9 L Discharge Location: Home Disposition: Home Health Service Home Health Agency: [facility] Home Health - with PT and OT Condition: Good Face to Face Encounter completed per [facility] Guidelines: Yes Discharge Activity: Other - Must wear TLSO brace when ambulating Discharge Diet: Consistent carbs Referrals: DOC,OUTSIDE [Non Staff Physicians] - One Week ([facility], preferrably in [place].) Darell Madrigal DO [Primary Care Provider] - Two Weeks Problem Oriented Discharge Instructions to Patient/Family: Lumbar Fracture Additional Patient Instructions (free text): Home Health to draw INR in one week and report to coumadin clinic (Marsha Madrigal) for dosing adjustments. Prescriptions (Any new or edited meds): oxyCODONE HCL [Oxycodone] 5 mg PO Q4H PRN #120 tab PRN Reason: Moderate Pain (Pain Scale 4-6) Transmission Status: Received by [facility] #[id number] Complete Home Medications List: Complete Home Medication List: simvastatin 20 mg tablet 20 mg PO QPM 12/21/17 levothyroxine 150 mcg tablet 150 mcg PO DAILY #30 tab 12/23/18 Cholecalciferol [Vitamin D] 1,000 unit PO DAILY 01/17/19 Multivitamin [One Daily Multivitamin] 1 ea PO DAILY 01/17/19 Vitamin B Complex Vit C No.3 [B Complex with Vitamin C] 1 ea PO DAILY 01/17/19 Warfarin Sodium [Coumadin] 2.5 mg PO MOFR 01/17/19 glimepiride 2 mg tablet 2 mg PO DAILY #90 tab 02/14/19 warfarin 5 mg tablet 5 mg PO SUTUWETHSA #90 tab 03/07/19 metoprolol tartrate 100 mg tablet 100 mg PO BID #60 tab 03/14/19 sertraline 50 mg tablet 50 mg PO DAILY #90 tab 03/25/19 Acetaminophen [Tylenol] 1,000 mg PO Q6H PRN tab 04/11/19 Bisacodyl [Dulcolax] 5 mg PO PRN PRN tablet. 04/11/19 Polyethylene Glycol 3350 [Miralax] 17 gm PO DAILY packet 04/11/19 Sennosides [Senokot] 8.6 mg PO BID PRN tab 04/11/19 oxyCODONE HCL [Oxycodone] 5 mg PO Q4H PRN #120 tab 04/11/19
[2019-04-11 15:15] VITALS: BP 134/78
== END 2019-04-11 15:15 | disposition home health service (06) ==
LOC: MS 05:09 → ER 05:09 → MS 10:35
PROVIDERS: ADMIT Family Medicine; ATTEND Family Medicine
DX: E11.9 Type 2 diabetes mellitus without complications; S32.019A Unspecified fracture of first lumbar vertebra, initial encounter for closed fracture; W19.XXXA Unspecified fall, initial encounter; F05 Delirium due to known physiological condition; J96.01 Acute respiratory failure with hypoxia; R29.898 Other symptoms and signs involving the musculoskeletal system
CPT/HCPCS: 36415; 70450; 72110; 72148; 74176; 80048; 80053; 81001; 85025; 85610; 85730; 94762; 96372; 96374; 97116; 97162; 97530; 99285; G0378

== ENCOUNTER 2019-09-08 07:35 | Inpatient (IN) ==
[2019-09-08 08:03] LABS: Hematocrit 35.5 % (42.0-52.0); Hemoglobin 11.5 gm/dL (13.5-18.0); Mean Cell Volume 90.3 fl (78-100); Mean Corpuscular Hemoglobin 29.3 pg (27-31); Mean Corpuscular Hgb Conc 32.4 g/dl (32-36); Mean Platelet Volume 9.2 fl (8-11.3); Neutrophil % 68.5 % (42-75.0); Platelet Count 281 K/mm3 (150-450); Red Blood Count 3.93 M/mm3 (4.7-6.0); Red Cell Distribution Width 13.9 % (11.5-14.0); White Blood Count 7.2 K/mm3 (4.0-10.5)
--- NOTE | 2019-09-08 08:09 | ERNOTE ---
<Jake Barry - Last Filed: 09/08/19 07:50> Neuro HPI ER Record Presenting Symptoms: weakness, facial droop Time Seen by Provider: 09/08/19 07:50 Source: family, EMS Exam Limitations: clinical condition Immunizations: IMMUNIZATION HX Immunizations Up to Date Yes: Information recalled History of Influenza Vaccine Yes Hx Pneumococcal Vaccination Yes Allergies/Adverse Reactions: Allergies Allergy/AdvReac Type Severity Reaction Status Date / Time Penicillins Allergy Severe Hives Verified 09/08/19 09:25 Home Medications: HOME MEDICATIONS Cholecalciferol [Vitamin D] 1,000 unit PO DAILY 01/17/19 [Last Taken 01/17/19] Multivitamin [One Daily Multivitamin] 1 ea PO DAILY 01/17/19 [Last Taken 01/17/19] Vitamin B Complex Vit C No.3 [B Complex with Vitamin C] 1 ea PO DAILY 01/17/19 [Last Taken 01/17/19] Acetaminophen [Tylenol] 1,000 mg PO Q6H PRN tab 04/11/19 [Last Taken Unknown] levothyroxine 137 mcg tablet 137 mcg PO DAILY #90 tab 08/22/19 [Last Taken Unknown] glimepiride 2 mg tablet 2 mg PO DAILY #90 tab 08/24/19 [Last Taken Unknown] metoprolol tartrate 100 mg tablet 100 mg PO BID #180 tab 08/24/19 [Last Taken Unknown] nystatin 100,000 unit/gram topical powder 1 applic TOPICAL TID PRN #60 g 09/02/19 [Last Taken Unknown] Ferrous Sulfate [Iron] 325 mg PO DAILY 09/08/19 [Last Taken Unknown] Sertraline HCl [Zoloft] 50 mg PO 1700 09/08/19 [Last Taken Unknown] Simvastatin [Zocor] 20 mg PO HS 09/08/19 [Last Taken Unknown] Warfarin Sodium [Coumadin] 2.5 mg PO SUTUWETHSA 09/08/19 [Last Taken Unknown] Warfarin Sodium [Coumadin] 5 mg PO MOFR 09/08/19 [Last Taken Unknown] - History of Present Illness Narrative: Patient brought in this morning with history of right facial droop and falling to the right side this morning. Patient is unable to give us any information even name or birthdate. His arrived and states that he has been getting weaker and weaker over the past number of weeks has been seen a number of times and today it got worse. Overnight he was hallucinating screaming and yelling telling his they needed to get out of the house. got him calm down then this morning he did the same thing. After sitting at the breakfast table the noticed he was leaning more and more to the right and having right facial droop and called EMS. Onset: gradual onset, continues in ER - Character of Deficits New weakness: Present: facial (rt) Altered sensation: Present: facial (rt) Additional Deficits: Present: decrease ability to stand - over the past few weeks Baseline Cognition: Present: alert but confused Baseline Gait: Present: unable to walk Associated Symptoms: Reports: altered mental status - halucinations, disoriented Review of Systems - Narrative Narrative: ROS limited due to confusion information taken from . - Review of Systems Constitutional: Absent: recent illness Gastrointestinal/Abdominal: Absent: nausea, vomiting Neurological: Present: See HPI, weakness, numbness Medical History (Last Reviewed 09/08/19 @ 07:58 by Jake Barry DO) Atrial fibrillation (Chronic) Onset Date: ~05/2017 Hypovitaminosis D (Chronic) Onset Date: Unknown Stenosis of right carotid artery (Chronic) Onset Date: Unknown Secondary hyperparathyroidism (of renal origin) (Chronic) Onset Date: Unknown Psoriasis (Chronic) Onset Date: Unknown Onychomycosis (Chronic) Onset Date: Unknown Obesity (Chronic) Onset Date: Unknown Hypothyroidism (Chronic) Onset Date: Unknown Hypertension (Chronic) Onset Date: Unknown Hyperlipidemia (Chronic) Onset Date: Unknown Gout (Chronic) Onset Date: Unknown GERD (gastroesophageal reflux disease) (Chronic) Onset Date: Unknown Diabetes mellitus, type II (Chronic) Onset Date: Unknown Coronary artery disease (Chronic) Onset Date: 02/22/13 Chronic kidney disease, stage 3 (Chronic) Onset Date: Unknown Renal failure (Chronic) Onset Date: Unknown Arthritis (Chronic) Onset Date: Unknown Metabolic encephalopathy Onset Date: 01/17/19 Admitted to [facility] on 01/17/2019. Discharged home on 01/21/2019. BPH (benign prostatic hyperplasia) Onset Date: Unknown Gastritis Onset Date: ~05/2017 Headache Onset Date: Unknown Hyperkalemia Onset Date: Unknown Kidney stone Onset Date: Unknown Migraine Onset Date: Unknown Pneumonia Onset Date: Unknown Proteinuria Onset Date: Unknown Superficial thrombophlebitis of arm Onset Date: 01/17/19 Left forearm. [facility]. Toe pain, left Onset Date: Unknown Atrial flutter Onset Date: 06/09/17 Myocardial infarction Onset Date: Unknown x3 Surgical History: Surgical History (Last Reviewed 09/08/19 @ 07:58 by Jake Barry DO) H/O colonoscopy Onset Date: ~2008 [place]: WNL History of PTCA Onset Date: Unknown History of angioplasty Onset Date: Unknown x3 History of back surgery Onset Date: 1983 Dr. Perry; Lumbar laminectomy L4 History of cholecystectomy Onset Date: ~1975 History of esophagogastroduodenoscopy (EGD) Onset Date: ~2008 History of excision of epidermal inclusion cyst Onset Date: 09/19/13 Dr. Lars Conroy, [facility]. Right groin. Family History: Family History (Last Reviewed 09/08/19 @ 07:58 by Jake Barry DO) Mother , age 84 Diabetes Breast cancer Social History: (Last Reviewed 09/08/19 @ 07:58 by Jake Barry DO) Social History: adopted: No fci: No household members: spouse number of children: 3 number of grandchildren: 11 current occupational status: retired Service: Yes Service comment: 1 yr branch: [employer] assignments: [employer] known or potential exposure: none Tobacco: Smoking Status: Never smoker Tobacco: How many years used: 36 Alcohol: alcohol intake: former Substance Use: substance use type: does not use Dietary Habits: caffeine: Yes caffeine comment: 1 cup of coffee, and 1 diet Mt. Dew daily. Type: coffee, carbonated beverages Nadiya/Caodaism: special nadiya needs: No Initial Stroke Assessment - Date/Time of assessment Stroke Scale Date: 09/08/19 Stroke Scale Time: 07:35 - NIH Stroke Scale Level of Consciousness: Alert LOC Questions (Year and Age): Answers neither correctly LOC Commands (open/close eyes/fist): Performs one correctly Lateral Gaze Paresis: None Visual Field Loss: No visual loss Facial Palsy: Partial facial paralysis Right Arm Motor (10 sec hold): No drift Left Arm Motor (10 sec hold): No drift Right Leg Motor (5 sec hold): No effort, limb falls Left Leg Motor (5 sec hold): No effort, limb falls Limb Ataxia (finger/nose heel/stallings): Present in 2 limbs If present, ataxia in:: Right leg, Left leg Sensory Loss (pinprick arms/legs/face): Mild, aware yet dulled Language Aphasia (description/naming/reading): No aphasia; normal Dysarthria (speech clarity): Slurring, intelligeble Neglect Inattention (visual/tactile/auditory/spatial/person): No neglect - complicated by previous LE weakness and dementia Initial Stroke Scale Score:: 15 Progress - Transfer of Care Physician Sign Out: Jake Barry Receiving Physician: Susanne Rand Pending Results: CT/MRI results, Labs Expected Disposition: Admit Departure Clinical Impression: CVA (cerebral vascular accident) Qualifiers: CVA mechanism: unspecified Qualified Code(s): I63.9 - Cerebral infarction, unspecified - Departure Disposition: Still a patient Condition: Stable <Susanne Rand - Last Filed: 09/08/19 11:00> Neuro HPI ER Record Presenting Symptoms: facial droop Source: family Exam Limitations: dementia Immunizations: IMMUNIZATION HX Immunizations Up to Date Yes History of Influenza Vaccine Yes Hx Pneumococcal Vaccination No Review of Systems - Narrative Narrative: limited by dementia Medical History (Last Reviewed 09/08/19 @ 07:58 by Jake Barry DO) Atrial fibrillation (Chronic) Onset Date: ~05/2017 Hypovitaminosis D (Chronic) Onset Date: Unknown Stenosis of right carotid artery (Chronic) Onset Date: Unknown Secondary hyperparathyroidism (of renal origin) (Chronic) Onset Date: Unknown Psoriasis (Chronic) Onset Date: Unknown Onychomycosis (Chronic) Onset Date: Unknown Obesity (Chronic) Onset Date: Unknown Hypothyroidism (Chronic) Onset Date: Unknown Hypertension (Chronic) Onset Date: Unknown Hyperlipidemia (Chronic) Onset Date: Unknown Gout (Chronic) Onset Date: Unknown GERD (gastroesophageal reflux disease) (Chronic) Onset Date: Unknown Diabetes mellitus, type II (Chronic) Onset Date: Unknown Coronary artery disease (Chronic) Onset Date: 02/22/13 Chronic kidney disease, stage 3 (Chronic) Onset Date: Unknown Renal failure (Chronic) Onset Date: Unknown Arthritis (Chronic) Onset Date: Unknown Metabolic encephalopathy Onset Date: 01/17/19 Admitted to [facility] on 01/17/2019. Discharged home on 01/21/2019. BPH (benign prostatic hyperplasia) Onset Date: Unknown Gastritis Onset Date: ~05/2017 Headache Onset Date: Unknown Hyperkalemia Onset Date: Unknown Kidney stone Onset Date: Unknown Migraine Onset Date: Unknown Pneumonia Onset Date: Unknown Proteinuria Onset Date: Unknown Superficial thrombophlebitis of arm Onset Date: 01/17/19 Left forearm. [facility]. Toe pain, left Onset Date: Unknown Atrial flutter Onset Date: 06/09/17 Myocardial infarction Onset Date: Unknown x3 Surgical History: Surgical History (Last Reviewed 09/08/19 @ 07:58 by Jake Barry DO) H/O colonoscopy Onset Date: ~2008 [place]: WNL History of PTCA Onset Date: Unknown History of angioplasty Onset Date: Unknown x3 History of back surgery Onset Date: 1983 Dr. Perry; Lumbar laminectomy L4 History of cholecystectomy Onset Date: ~1975 History of esophagogastroduodenoscopy (EGD) Onset Date: ~2008 History of excision of epidermal inclusion cyst Onset Date: 09/19/13 Dr. Lars Conroy, [facility]. Right groin. Family History: Family History (Last Reviewed 09/08/19 @ 07:58 by Jake Barry DO) Mother , age 84 Breast cancer Diabetes Social History: (Last Reviewed 09/08/19 @ 07:58 by Jake Barry DO) Social History: adopted: No fci: No household members: spouse number of children: 3 number of grandchildren: 11 current occupational status: retired Service: Yes Service comment: 1 yr branch: [employer] assignments: [employer], [employer] known or potential exposure: none Tobacco: Smoking Status: Never smoker Tobacco: How many years used: 36 Alcohol: alcohol intake: former Substance Use: substance use type: does not use Dietary Habits: caffeine: Yes caffeine comment: 1 cup of coffee, and 1 diet Mt. Dew daily. Type: coffee, carbonated beverages Nadiya/Caodaism: special nadiya needs: No Physical Exam - Physical Exam General Appearance: Present: wd/wn, alert, no apparent distress Head Exam: Present: normal inspection Eye Exam: Normal inspection: bilateral Respiratory: Present: no respiratory distress, normal breath sounds, no accessory muscle use, lungs clear Cardiovascular/Chest: Present: regular rate, rhythm, no murmur Neurological Exam: Present: alert, no motor/sensory deficits - equal push pull, keeps both hand up, facial droop - right, still able to close eyes equally, wrinkle forehead, disoriented to person, disoriented to time, disoriented to place, disoriented to situation Progress - Results and Orders Patient's Lab Results:: I have reviewed the patient's lab results. - Vital Signs Patient's Vital Signs:: I have reviewed the patient's vital signs. Vital Signs: Vital Signs 09/08/19 07:53 09/08/19 07:59 09/08/19 08:02 Temperature 36.0 C Pulse Rate 70 70 68 Respiratory Rate 16 16 Blood Pressure 184/109 H 209/93 H O2 Sat by Pulse Oximetry 95 95 09/08/19 08:10 Temperature Pulse Rate 90 Respiratory Rate 15 Blood Pressure 187/87 H O2 Sat by Pulse Oximetry 94 - EKG EKG #1 EKG: NSR, other - first degree AV block EKG read: Interp. by me - X-Ray X-Ray #1 X-Ray: chest - no acute changes Interpretation: Reviewed by me - CT/Ultrasound CT/Ultrasound Narrative: CT head: no acute changes - Progress/Reassessment Progress Note-Subjective: 09/08/19 08:37 long discussion with , patient is not a candidate for TPA since he has an elevated INR and his symptoms are minor. With the persistent right-sided facial droop it does look like he has another stroke. Discussed transferring patient to the [facility] which is a stroke center though I cannot promise her that they have any other options for him, versus keeping him here in this hospital which will be more convenient for him and the family. would prefer to keep him here. Also discussed that they might need to have to come up with a plan what to do with him from here since she is the primary caregiver and he has been declining more recently. 09/08/19 08:[address] Madrigal, aldairay to admit for CVA
[2019-09-08 08:17] LABS: INR 3.28 INR (0.92-1.08); Partial Thrombolplastin Time 43.5 Seconds (24-32)
[2019-09-08 08:19] LABS: Albumin * 2.6 gm/dl (3.4-5.0); BUN/Creatinine Ratio 10.8 (9.0-21.6); Bilirubin, Total 0.4 mg/dL (0.0-1.1); Calcium * 9.2 mg/dL (7.9-10.9); Carbon Dioxide 28.6 mmol/L (24-32.6); Potassium 3.6 mmol/L (3.4-4.6); Total Protein 6.6 gm/dL (6.2-8.2)
[2019-09-08] MEDS ORDERED: ACETAMINOPHEN 500 MG TABLET PO PRN (11:07)
[2019-09-08] MEDS ORDERED: NYSTATIN 15 APPL BTL TP PRN (11:07)
[2019-09-08] MEDS: METOPROLOL TARTRATE 100 MG TABLET PO SCH ×2 (12:29→20:38)
[2019-09-08] MEDS: GLIMEPIRIDE 2 MG TABLET PO SCH (12:29)
[2019-09-08] MEDS: LEVOTHYROXINE SODIUM 137 MCG TABLET PO SCH (12:30)
--- NOTE | 2019-09-08 16:42 | HP ---
Chief Complaint - Chief Complaint Date of Service: 09/08/19 Time of Service: 12:30 Chief Complaint: right facial droop, right sided weakness, confusion History of Present Illness: Jayjay is an 79 yo male with history of prior stroke which symptoms resolved. He has chronic anticoagulation due to history of atrial flutter. He is on coumadin chronically and follows with the coumadin clinic. Today he was noted to have right sided weakness and right sided facial droop. He also appeared to be more confused than usual. He does have chronic dementia which has been progressing. He presented to the ER and head CT was negative for acute c hange. He continued to be confused and have right facial droop. Due to his use of anticoagulants he did not meet criteria for tPA. He has been taking his coumadin and INR is actually a little above 3. Medical History (This Medical Record has been edited. Action required.) Atrial fibrillation (Chronic) Onset Date: ~05/2017 Hypovitaminosis D (Chronic) Onset Date: Unknown Stenosis of right carotid artery (Chronic) Onset Date: Unknown Secondary hyperparathyroidism (of renal origin) (Chronic) Onset Date: Unknown Psoriasis (Chronic) Onset Date: Unknown Onychomycosis (Chronic) Onset Date: Unknown Obesity (Chronic) Onset Date: Unknown Hypothyroidism (Chronic) Onset Date: Unknown Hypertension (Chronic) Onset Date: Unknown Hyperlipidemia (Chronic) Onset Date: Unknown Gout (Chronic) Onset Date: Unknown GERD (gastroesophageal reflux disease) (Chronic) Onset Date: Unknown Diabetes mellitus, type II (Chronic) Onset Date: Unknown Coronary artery disease (Chronic) Onset Date: 02/22/13 Chronic kidney disease, stage 3 (Chronic) Onset Date: Unknown Renal failure (Chronic) Onset Date: Unknown Arthritis (Chronic) Onset Date: Unknown Metabolic encephalopathy Onset Date: 01/17/19 Admitted to [facility] on 01/17/2019. Discharged home on 01/21/2019. BPH (benign prostatic hyperplasia) Onset Date: Unknown Gastritis Onset Date: ~05/2017 Headache Onset Date: Unknown Hyperkalemia Onset Date: Unknown Kidney stone Onset Date: Unknown Migraine Onset Date: Unknown Pneumonia Onset Date: Unknown Proteinuria Onset Date: Unknown Superficial thrombophlebitis of arm Onset Date: 01/17/19 Left forearm. [facility]. Toe pain, left Onset Date: Unknown Atrial flutter Onset Date: 06/09/17 Myocardial infarction Onset Date: Unknown x3 Surgical History: Surgical History (This Medical Record has been edited. Action required.) H/O colonoscopy Onset Date: ~2008 [place]: WNL History of PTCA Onset Date: Unknown History of angioplasty Onset Date: Unknown x3 History of back surgery Onset Date: 1983 Dr. Perry; Lumbar laminectomy L4 History of cholecystectomy Onset Date: ~1975 History of esophagogastroduodenoscopy (EGD) Onset Date: ~2008 History of excision of epidermal inclusion cyst Onset Date: 09/19/13 Dr. Lars Conroy, [facility]. Right groin. Family History: Family History (This Medical Record has been edited. Action required.) Mother , age 84 Diabetes Breast cancer Social History: (This Medical Record has been edited. Action required.) Social History: adopted: No intermediate: No household members: spouse number of children: 3 number of grandchildren: 11 current occupational status: retired Service: Yes Service comment: 1 yr branch: [employer] assignments: [employer], [employer] known or potential exposure: none Tobacco: Smoking Status: Never smoker Tobacco: How many years used: 36 Alcohol: alcohol intake: former Substance Use: substance use type: does not use Dietary Habits: caffeine: Yes caffeine comment: 1 cup of coffee, and 1 diet Mt. Dew daily. Type: coffee, carbonated beverages Nadiya/Mosque: special nadiya needs: No Review Of Systems (GEN) - Review of Systems Generalized/Overall Review: Present: Weakness. Absent: Chills, Fever EENTM: Present: No Symptoms Reported Respiratory: Absent: Cough, Shortness of Breath Cardiac: Absent: Chest Pain, Edema Abdominal: Absent: Nausea, Vomiting Genitourinary: Present: No Symptoms Reported Musculoskeletal: Present: Joint Pain, Back Pain Neurological: Present: Weakness. Absent: Numbness Skin: Present: No Symptoms Reported Endocrine: Present: No Symptoms Reported Immunizations: IMMUNIZATION HX Immunizations Up to Date Yes History of Influenza Vaccine Yes Hx Pneumococcal Vaccination No Allergies/Adverse Reactions: Allergies Allergy/AdvReac Type Severity Reaction Status Date / Time Penicillins Allergy Severe Hives Verified 09/08/19 15:54 Home Medications: HOME MEDICATIONS Cholecalciferol [Vitamin D] 1,000 unit PO DAILY 01/17/19 [Last Taken 01/17/19] Multivitamin [One Daily Multivitamin] 1 ea PO DAILY 01/17/19 [Last Taken 01/17/19] Vitamin B Complex Vit C No.3 [B Complex with Vitamin C] 1 ea PO DAILY 01/17/19 [Last Taken 01/17/19] Acetaminophen [Tylenol] 1,000 mg PO Q6H PRN tab 04/11/19 [Last Taken Unknown] levothyroxine 137 mcg tablet 137 mcg PO DAILY #90 tab 08/22/19 [Last Taken Unknown] glimepiride 2 mg tablet 2 mg PO DAILY #90 tab 08/24/19 [Last Taken Unknown] metoprolol tartrate 100 mg tablet 100 mg PO BID #180 tab 08/24/19 [Last Taken Unknown] nystatin 100,000 unit/gram topical powder 1 applic TOPICAL TID PRN #60 g 09/02/19 [Last Taken Unknown] Ferrous Sulfate [Iron] 325 mg PO DAILY 09/08/19 [Last Taken Unknown] Sertraline HCl [Zoloft] 50 mg PO 1700 09/08/19 [Last Taken Unknown] Simvastatin [Zocor] 20 mg PO HS 09/08/19 [Last Taken Unknown] Warfarin Sodium [Coumadin] 2.5 mg PO SUTUWETHSA 09/08/19 [Last Taken Unknown] Warfarin Sodium [Coumadin] 5 mg PO MOFR 09/08/19 [Last Taken Unknown] Exam - Exam Vital Signs: Vital Signs - Last Taken Temp 36.7 C 09/08/19 16:01 Pulse 66 09/08/19 16:01 Resp 16 09/08/19 16:01 BP 167/85 H 09/08/19 16:01 Pulse Ox 97 09/08/19 16:01 Constitutional: Present: Alert, Cooperative, Other - oriented x 2, right sided facial droop ENT Exam: Present: hard of hearing Eye Exam: bilateral eye: normal inspection Respiratory: Present: lungs clear, normal breath sounds Cardiovascular/Chest: Present: no murmur, irregularly irregular Peripheral Pulses: radial (R): 2+, radial (L): 2+ Abdomen: Present: Normal bowel sounds, soft, nontender, nondistended Skin Exam: Present: normal color, warm/dry, no cyanosis Eye contact: Present: cooperative, good eye contact Thoughts: Present: other - a little confused, but recognizes me and his Diagnostic Studies: Abnormal Lab Results 09/08/19 09/08/19 09/08/19 Range/Units 07:52 08:00 08:00 RBC 3.93 L (4.7-6.0) M/mm3 Hgb 11.5 L (13.5-18.0) gm/dL Hct 35.5 L (42.0-52.0) % Lymphocytes % 13.0 L (20-51) % Eosinophils % 9.7 H (0.0-3.0) % Lymphocytes # 0.94 L (1.5-3.5) k/mm3 ESR 76 H (0-10) mm/hr PT 31.0 H (9.1-10.7) Seconds INR (Anticoag Therapy) 3.28 H (0.92-1.08) INR PTT ([place]) 43.5 H (24-32) Seconds Sodium (132-142) mmol/L Plasma Sodium (130-142) mmol/L Chloride (97-106) mmol/L Creatinine (0.4-1.4) mg/dL Est GFR (Non-Af Amer) (60-130) mL/min Random Glucose (70-110) mg/dL ALT (19-67) U/L Albumin (3.4-5.0) gm/dl 09/08/19 Range/Units 08:00 RBC (4.7-6.0) M/mm3 Hgb (13.5-18.0) gm/dL Hct (42.0-52.0) % Lymphocytes % (20-51) % Eosinophils % (0.0-3.0) % Lymphocytes # (1.5-3.5) k/mm3 ESR (0-10) mm/hr PT (9.1-10.7) Seconds INR (Anticoag Therapy) (0.92-1.08) INR PTT ([place]) (24-32) Seconds Sodium 143 H (132-142) mmol/L Plasma Sodium 144 H (130-142) mmol/L Chloride 107 H (97-106) mmol/L Creatinine 1.66 H (0.4-1.4) mg/dL Est GFR (Non-Af Amer) 42 L (60-130) mL/min Random Glucose 177 H (70-110) mg/dL ALT 11 L (19-67) U/L Albumin 2.6 L (3.4-5.0) gm/dl Laboratory Results WBC 7.2 K/mm3 (4.0-10.5) 09/08/19 07:52 RBC 3.93 M/mm3 (4.7-6.0) L 09/08/19 07:52 Hgb 11.5 gm/dL (13.5-18.0) L 09/08/19 07:52 Hct 35.5 % (42.0-52.0) L 09/08/19 07:52 MCV 90.3 fl (78-100) 09/08/19 07:52 MCH 29.3 pg (27-31) 09/08/19 07:52 MCHC 32.4 g/dl (32-36) 09/08/19 07:52 RDW 13.9 % (11.5-14.0) 09/08/19 07:52 Plt Count 281 K/mm3 (150-450) 09/08/19 07:52 MPV 9.2 fl (8-11.3) 09/08/19 07:52 Immature Gran % (Auto) 0.30 % (0.001-0.429) 09/08/19 07:52 Immature Gran # (Auto) 0.02 K/mm3 (0.000-0.0310) 09/08/19 07:52 Neutrophils % 68.5 % (42-75.0) 09/08/19 07:52 Lymphocytes % 13.0 % (20-51) L 09/08/19 07:52 Monocytes % 7.5 % (0.0-9) 09/08/19 07:52 Eosinophils % 9.7 % (0.0-3.0) H 09/08/19 07:52 Basophils % 1.0 % (0.0-1.0) 09/08/19 07:52 Nucleated RBC % 0.0 k/mm3 (0-1) 09/08/19 07:52 Neutrophils # 5.0 K/mm3 (1.3-6.0) 09/08/19 07:52 Lymphocytes # 0.94 k/mm3 (1.5-3.5) L 09/08/19 07:52 Monocytes # 0.5 k/mm3 (0.0-1.0) 09/08/19 07:52 Eosinophils # 0.7 k/mm3 (0.0-0.7) 09/08/19 07:52 Absolute Basophils 0.1 k/mm3 (0.0-0.1) 09/08/19 07:52 ESR 76 mm/hr (0-10) H 09/08/19 08:00 PT 31.0 Seconds (9.1-10.7) H 09/08/19 08:00 INR (Anticoag Therapy) 3.28 INR (0.92-1.08) H 09/08/19 08:00 PTT ([place]) 43.5 Seconds (24-32) H 09/08/19 08:00 Sodium 143 mmol/L (132-142) H 09/08/19 08:00 Plasma Sodium 144 mmol/L (130-142) H 09/08/19 08:00 Potassium 3.6 mmol/L (3.4-4.6) 09/08/19 08:00 Chloride 107 mmol/L (97-106) H 09/08/19 08:00 Carbon Dioxide 28.6 mmol/L (24-32.6) 09/08/19 08:00 Anion Gap 11.0 mmol/L (6.8-13.8) 09/08/19 08:00 BUN 18 mg/dL (6-23) 09/08/19 08:00 Creatinine 1.66 mg/dL (0.4-1.4) H 09/08/19 08:00 Est GFR (Non-Af Amer) 42 mL/min (60-130) L 09/08/19 08:00 BUN/Creatinine Ratio 10.8 (9.0-21.6) 09/08/19 08:00 Random Glucose 177 mg/dL (70-110) H 09/08/19 08:00 Calcium 9.2 mg/dL (7.9-10.9) 09/08/19 08:00 Calcium Adj for Albumin 10.0 mg/dL (8.4-10.2) 09/08/19 08:00 Total Bilirubin 0.4 mg/dL (0.0-1.1) 09/08/19 08:00 AST 17 U/L (0-48) 09/08/19 08:00 ALT 11 U/L (19-67) L 09/08/19 08:00 Alkaline Phosphatase 85 U/L (50-170) 09/08/19 08:00 Total Protein 6.6 gm/dL (6.2-8.2) 09/08/19 08:00 Albumin 2.6 gm/dl (3.4-5.0) L 09/08/19 08:00 Assessment/Plan - Narrative Narrative: Jayjay is n 79 yo male with clinical indications of stroke. He has right sided facial droop, weakness, and increased confusion this morning. He will be continued on coumadin although will hold next dose as his level is elevated. Will evaluate with Brain MRI and consult PT, OT, and ST. Will admit to inpatient status for acute ischemic stroke. Head CT negative for bleeding. He will likely need exterminator helper rehab for strengthening. - Assessment/Plan (1) CVA (cerebral vascular accident) Problem: Acute Qualifiers: CVA mechanism: unspecified Qualified Code(s): I63.9 - Cerebral infarction, unspecified
[2019-09-08] MEDS: SERTRALINE HCL 50 MG TABLET PO SCH (17:52)
[2019-09-08] MEDS: SIMVASTATIN 20 MG TABLET PO SCH (20:33)
[2019-09-08] MEDS ORDERED: hydrALAZINE HCL 20 MG/ML VIAL IV ONE (22:30)
[2019-09-09] MEDS ORDERED: hydrALAZINE HCL 20 MG/ML VIAL IV ONE (02:02)
[2019-09-09] MEDS: GLIMEPIRIDE 2 MG TABLET PO SCH (09:35)
[2019-09-09] MEDS: MULTIVITAMINS 1 CAP CAPSULE PO SCH (09:35)
[2019-09-09] MEDS: LEVOTHYROXINE SODIUM 137 MCG TABLET PO SCH (09:35)
[2019-09-09] MEDS: CHOLECALCIFEROL 1,000 UNIT CAPSULE PO SCH (09:35)
[2019-09-09] MEDS: METOPROLOL TARTRATE 100 MG TABLET PO SCH ×2 (09:35→20:50)
[2019-09-09] MEDS: FERROUS SULFATE 325 MG TABLET PO SCH (09:35)
[2019-09-09 13:28] LABS: Prothrombin Time (Patient) 32.7 Seconds (9.1-10.7)
[2019-09-09 13:29] LABS: INR 3.46 INR (0.92-1.08)
[2019-09-09] MEDS: SERTRALINE HCL 50 MG TABLET PO SCH (16:00)
[2019-09-09] MEDS: HALOPERIDOL 1 MG TABLET PO SCH (20:49)
[2019-09-09] MEDS: SIMVASTATIN 20 MG TABLET PO SCH (20:50)
--- NOTE | 2019-09-09 23:09 | PN ---
Subjective - Date and Time Seen Date: 09/09/19 Time: 15:20 Subjective Narrative: Jayjay has been restless at times. Continues to have general weakness and right side facial droop. He reports he did not sleep well last night. Nursing reports confusion and delirium at times. Objective - Vitals Vitals: Last Vital Signs Temp 35.9 C L 09/09/19 22:18 Pulse 67 09/09/19 22:18 Resp 18 09/09/19 22:18 BP 179/89 H 09/09/19 22:18 Pulse Ox 95 09/09/19 22:18 - Abnormal Lab Findings Abnormal Lab Findings: Abnormal Lab Results 09/09/19 Range/Units 12:58 PT 32.7 H (9.1-10.7) Seconds INR (Anticoag Therapy) 3.46 H (0.92-1.08) INR - Exam Constitutional: Present: Alert, Cooperative, No distress, Other - oriented x 2 Respiratory: Present: lungs clear, normal breath sounds, no respiratory distress Cardiovascular/Chest: Present: regular rate, rhythm, no edema Abdomen: Present: Normal bowel sounds, soft, nontender, nondistended Skin Exam: Present: normal color, warm/dry, no cyanosis Eye contact: Present: cooperative Assessment/Plan Plan Narrative: Acute stroke with right facial droop and weakness. Continue PT, OT, and ST. He is not safe for home and will need rehab at senior care facility. Do to delirium at times and difficulty sleeping will give haldol at bedtime to help with sleep. - Problems/Diagnosis (1) CVA (cerebral vascular accident) Problem: Acute Qualifiers: CVA mechanism: unspecified Qualified Code(s): I63.9 - Cerebral infarction, unspecified (2) Hypertension Problem: Chronic Qualifiers: Hypertension type: essential hypertension Qualified Code(s): I10 - Essential (primary) hypertension
[2019-09-10 06:28] LABS: Prothrombin Time (Patient) 28.2 Seconds (9.1-10.7)
[2019-09-10 06:30] LABS: INR 2.97 INR (0.92-1.08)
[2019-09-10] MEDS: GLIMEPIRIDE 2 MG TABLET PO SCH (09:07)
[2019-09-10] MEDS: LEVOTHYROXINE SODIUM 137 MCG TABLET PO SCH (09:07)
[2019-09-10] MEDS: CHOLECALCIFEROL 1,000 UNIT CAPSULE PO SCH (09:07)
[2019-09-10] MEDS: FERROUS SULFATE 325 MG TABLET PO SCH (09:07)
[2019-09-10] MEDS: METOPROLOL TARTRATE 100 MG TABLET PO SCH ×2 (09:07→20:42)
[2019-09-10] MEDS: MULTIVITAMINS 1 CAP CAPSULE PO SCH (09:07)
[2019-09-10] MEDS: SERTRALINE HCL 50 MG TABLET PO SCH (17:18)
[2019-09-10] MEDS: WARFARIN SODIUM 2.5 MG TABLET PO SCH (17:18)
[2019-09-10] MEDS: HALOPERIDOL 1 MG TABLET PO SCH (20:41)
[2019-09-10] MEDS: SIMVASTATIN 20 MG TABLET PO SCH (20:42)
--- NOTE | 2019-09-10 23:29 | PN ---
Subjective - Date and Time Seen Date: 09/10/19 Time: 09:20 Subjective Narrative: Jayjay reports sleeping better last night with the haldol. Nursing reports he slept well and had no problems overnight. Objective - Vitals Vitals: Last Vital Signs Temp 36.4 C 09/10/19 18:16 Pulse 81 09/10/19 20:42 Resp 18 09/10/19 18:16 BP 148/89 09/10/19 20:42 Pulse Ox 96 09/10/19 18:16 - Abnormal Lab Findings Abnormal Lab Findings: Abnormal Lab Results 09/10/19 Range/Units 06:00 PT 28.2 H (9.1-10.7) Seconds INR (Anticoag Therapy) 2.97 H (0.92-1.08) INR - Exam Constitutional: Present: Alert, Cooperative, Other - oriented x 2, right facial droop Respiratory: Present: lungs clear, normal breath sounds, no respiratory distress Cardiovascular/Chest: Present: no edema, no murmur, irregularly irregular Abdomen: Present: Normal bowel sounds, soft, nontender, nondistended Skin Exam: Present: normal color, warm/dry, no cyanosis Assessment/Plan Plan Narrative: Sleeping better and moods better with haldol at bedtime. Will continue this and continue therapies. Looking into SNF placement at discharge. Stroke changes are stable, continues to have right sided facial droop. Restarting coumadin today which was held due to supratherapeutic INR. - Problems/Diagnosis (1) CVA (cerebral vascular accident) Problem: Acute Qualifiers: CVA mechanism: unspecified Qualified Code(s): I63.9 - Cerebral infarction, unspecified (2) Hypertension Problem: Chronic Qualifiers: Hypertension type: essential hypertension Qualified Code(s): I10 - Essen tial (primary) hypertension
[2019-09-11] MEDS: LEVOTHYROXINE SODIUM 137 MCG TABLET PO SCH (06:53)
[2019-09-11 07:28] LABS: Prothrombin Time (Patient) 21.7 Seconds (9.1-10.7)
[2019-09-11 07:29] LABS: INR 2.26 INR (0.92-1.08)
[2019-09-11] MEDS: FERROUS SULFATE 325 MG TABLET PO SCH (09:41)
[2019-09-11] MEDS: GLIMEPIRIDE 2 MG TABLET PO SCH (09:41)
[2019-09-11] MEDS: METOPROLOL TARTRATE 100 MG TABLET PO SCH ×2 (09:41→20:28)
[2019-09-11] MEDS: MULTIVITAMINS 1 CAP CAPSULE PO SCH (09:41)
[2019-09-11] MEDS: CHOLECALCIFEROL 1,000 UNIT CAPSULE PO SCH (09:45)
[2019-09-11] MEDS: WARFARIN SODIUM 2.5 MG TABLET PO SCH (16:28)
[2019-09-11] MEDS: SERTRALINE HCL 50 MG TABLET PO SCH (16:29)
[2019-09-11] MEDS: SIMVASTATIN 20 MG TABLET PO SCH (20:28)
[2019-09-11] MEDS: HALOPERIDOL 1 MG TABLET PO SCH (20:29)
--- NOTE | 2019-09-11 23:11 | PN ---
Subjective - Date and Time Seen Date: 09/11/19 Time: 11:15 Subjective Narrative: Jayjay reports he slept well again and feels well at this time. His is present and reports he is still confused but has not been as sleepy during the day. No focal neurological changes. He has no concerns at this time. Objective - Vitals Vitals: Last Vital Signs Temp 37.1 C 09/11/19 20:25 Pulse 70 09/11/19 20:28 Resp 20 09/11/19 20:25 BP 144/67 09/11/19 20:28 Pulse Ox 95 09/11/19 20:25 - Abnormal Lab Findings Abnormal Lab Findings: Abnormal Lab Results 09/11/19 Range/Units 07:07 PT 21.7 H (9.1-10.7) Seconds INR (Anticoag Therapy) 2.26 H (0.92-1.08) INR - Exam Constitutional: Present: Alert, Other - oriented x 2 Respiratory: Present: lungs clear, normal breath sounds Cardiovascular/Chest: Present: irregularly irregular Abdomen: Present: Normal bowel sounds, soft, nontender, nondistended Skin Exam: Present: normal color, warm/dry, no cyanosis Assessment/Plan Plan Narrative: Neurologically stable. No concerns. He does appear to be doing better with haldol at bedtime. Will continue this dose. Continue to work on therapies. May be discharged to care home tomorrow. He is medically stable. - Problems/Diagnosis (1) CVA (cerebral vascular accident) Problem: Acute Qualifiers: CVA mechanism: unspecified Qualified Code(s): I63.9 - Cerebral infarction, unspecified (2) Hypertension Problem: Chronic Qualifiers: Hypertension type: essential hypertension Qualified Code(s): I10 - Essential (primary) hypertension
[2019-09-12 07:15] LABS: Prothrombin Time (Patient) 17.1 Seconds (9.1-10.7)
[2019-09-12 07:17] LABS: INR 1.77 INR (0.92-1.08)
[2019-09-12] MEDS: GLIMEPIRIDE 2 MG TABLET PO SCH (08:25)
[2019-09-12] MEDS: FERROUS SULFATE 325 MG TABLET PO SCH (08:25)
[2019-09-12] MEDS: MULTIVITAMINS 1 CAP CAPSULE PO SCH (08:25)
[2019-09-12] MEDS: LEVOTHYROXINE SODIUM 137 MCG TABLET PO SCH (08:25)
[2019-09-12] MEDS: METOPROLOL TARTRATE 100 MG TABLET PO SCH ×2 (08:28→20:11)
[2019-09-12] MEDS: CHOLECALCIFEROL 1,000 UNIT CAPSULE PO SCH (08:28)
[2019-09-12] MEDS: SERTRALINE HCL 50 MG TABLET PO SCH (16:55)
[2019-09-12] MEDS ORDERED: WARFARIN SODIUM 5 MG TABLET PO SCH (17:00)
[2019-09-12] MEDS: HALOPERIDOL 1 MG TABLET PO SCH (20:11)
[2019-09-12] MEDS: SIMVASTATIN 20 MG TABLET PO SCH (20:12)
--- NOTE | 2019-09-12 21:25 | PN ---
Subjective - Date and Time Seen Date: 09/12/19 Time: 11:00 Subjective Narrative: Jayjay reports doing well. He has no concerns. He reports sleeping well last night. He still appears confused at times, but is very pleasant. No fever, chills, nausea, or vomiting. Objective - Vitals Vitals: Last Vital Signs Temp 36.3 C 09/12/19 18:00 Pulse 68 09/12/19 20:11 Resp 18 09/12/19 18:00 BP 140/70 09/12/19 20:11 Pulse Ox 95 09/12/19 18:00 - Abnormal Lab Findings Abnormal Lab Findings: Abnormal Lab Results 09/12/19 Range/Units 06:30 PT 17.1 H (9.1-10.7) Seconds INR (Anticoag Therapy) 1.77 H (0.92-1.08) INR - Exam Constitutional: Present: Alert. Absent: Oriented x3 Respiratory: Present: lungs clear, normal breath sounds, no respiratory distress Cardiovascular/Chest: Present: no edema, irregularly irregular Abdomen: Present: Normal bowel sounds, soft, nontender, nondistended Skin Exam: Present: normal color, warm/dry, no cyanosis Assessment/Plan Plan Narrative: Plan to discharge to [facility] tomorrow. No changes today. Continue therapies. - Problems/Diagnosis (1) CVA (cerebral vascular accident) Problem: Acute Qualifiers: CVA mechanism: unspecified Qualified Code(s): I63.9 - Cerebral infarction, unspecified (2) Hypertension Problem: Chronic Qualifiers: Hypertension type: essential hypertension Qualified Code(s): I10 - Essential (primary) hypertension
[2019-09-13 06:29] LABS: Prothrombin Time (Patient) 19.2 Seconds (9.1-10.7)
[2019-09-13 06:30] LABS: INR 1.99 INR (0.92-1.08)
[2019-09-13] MEDS: LEVOTHYROXINE SODIUM 137 MCG TABLET PO SCH (07:19)
--- NOTE | 2019-09-13 08:35 | DS ---
(1) CVA (cerebral vascular accident) Problem: Acute Qualifiers: CVA mechanism: unspecified Qualified Code(s): I63.9 - Cerebral infarction, unspecified (2) Hypertension Problem: Chronic Qualifiers: Hypertension type: essential hypertension Qualified Code(s): I10 - Essential (primary) hypertension Date of Discharge:: 09/13/19 Hospital Course: Jayjay was admitted for worsening confusion, weakness, and right sided facial droop. He was clinically diagnosed with stroke. He had an MRI but was too restless to get adequate pictures. PT, OT, and ST were consulted and worked to strengthen. He is not safe to be at home and is needing further therapies with SNF. Will plan to discharge to [facility] today with continued therapies. Procedures Performed: none Results and Findings: Lab Pending Results 09/08/19 07:52: WBC 7.2, RBC 3.93 L, Hgb 11.5 L, Hct 35.5 L, MCV 90.3, MCH 29.3, MCHC 32.4, RDW 13.9, Plt Count 281, MPV 9.2, Immature Gran % (Auto) 0.30, Immature Gran # (Auto) 0.02, Neutrophils % 68.5, Lymphocytes % 13.0 L, Monocytes % 7.5, Eosinophils % 9.7 H, Basophils % 1.0, Nucleated RBC % 0.0, Neutrophils # 5.0, Lymphocytes # 0.94 L, Monocytes # 0.5, Eosinophils # 0.7, Absolute Basophils 0.1 09/08/19 08:00: ESR 76 H 09/08/19 08:00: PT 31.0 H, INR (Anticoag Therapy) 3.28 H, PTT ([place]) 43.5 H 09/08/19 08:00: Sodium 143 H, Plasma Sodium 144 H, Potassium 3.6, Chloride 107 H, Carbon Dioxide 28.6, Anion Gap 11.0, BUN 18, Creatinine 1.66 H, Est GFR (Non- Af Amer) 42 L, BUN/Creatinine Ratio 10.8, Random Glucose 177 H, Calcium 9.2, Calcium Adj for Albumin 10.0, Total Bilirubin 0.4, AST 17, ALT 11 L, Alkaline Phosphatase 85, Total Protein 6.6, Albumin 2.6 L 09/09/19 12:58: PT 32.7 H, INR (Anticoag Therapy) 3.46 H 09/09/19 14:40: SARS-CoV-2 (PCR) Not detected 09/10/19 06:00: PT 28.2 H, INR (Anticoag Therapy) 2.97 H 09/11/19 07:07: PT 21.7 H, INR (Anticoag Therapy) 2.26 H 09/12/19 06:30: PT 17.1 H, INR (Anticoag Therapy) 1.77 H 09/13/19 06:15: PT 19.2 H, INR (Anticoag Therapy) 1.99 H Discharge Location: [facility] Disposition: SNF Condition: Stable Level of Care: SNF Discharge Activity: Activity as tolerated Discharge Diet: Consistent carbs Referrals: Darell Madrigal DO [Primary Care Provider] - (To follow at [facility]) Problem Oriented Discharge Instructions to Patient/Family: Ischemic Stroke, [id number] Additional Patient Instructions (free text): To [facility] SNF, for Therapies. PT, OT, and ST to evaluate and treat. Check INR in one week. Please call and fax discharge information to them. Complete Home Medications List: Complete Home Medication List: Cholecalciferol [Vitamin D] 1,000 unit PO DAILY 01/17/19 Multivitamin [One Daily Multivitamin] 1 ea PO DAILY 01/17/19 Vitamin B Complex Vit C No.3 [B Complex with Vitamin C] 1 ea PO DAILY 01/17/19 Acetaminophen [Tylenol] 1,000 mg PO Q6H PRN tab 04/11/19 levothyroxine 137 mcg tablet 137 mcg PO DAILY #90 tab 08/22/19 glimepiride 2 mg tablet 2 mg PO DAILY #90 tab 08/24/19 metoprolol tartrate 100 mg tablet 100 mg PO BID #180 tab 08/24/19 nystatin 100,000 unit/gram topical powder 1 applic TOPICAL TID PRN #60 g 09/02/19 Ferrous Sulfate [Iron] 325 mg PO DAILY 09/08/19 Sertraline HCl [Zoloft] 50 mg PO 1700 09/08/19 Simvastatin [Zocor] 20 mg PO HS 09/08/19 Warfarin Sodium [Coumadin] 2.5 mg PO SUTUWETHSA 09/08/19 Warfarin Sodium [Coumadin] 5 mg PO MOFR 09/08/19 Forms: Patient Portal Registration
[2019-09-13 10:04] VITALS: BP 148/71
== END 2019-09-13 10:26 | DRG 65 ==
LOC: ER 07:35 → MS 08:45
PROVIDERS: ADMIT Family Medicine; ATTEND Family Medicine
DX: F03.90 Unspecified dementia, unspecified severity, without behavioral disturbance, psychotic disturbance, mood disturbance, and anxiety; I63.9 Cerebral infarction, unspecified; Z79.01 Long term (current) use of anticoagulants; I69.959 Hemiplegia and hemiparesis following unspecified cerebrovascular disease affecting unspecified side; I48.92 Unspecified atrial flutter; N18.3 Chronic kidney disease, stage 3 (moderate); R29.810 Facial weakness; I12.9 Hypertensive chronic kidney disease with stage 1 through stage 4 chronic kidney disease, or unspecified chronic kidney disease; E11.22 Type 2 diabetes mellitus with diabetic chronic kidney disease
CPT/HCPCS: 36415; 70450; 70551; 71010; 71045; 80053; 85025; 85610; 85652; 85730; 92507; 93005; 96125; 97110; 97116; 97162; 97166; 97530; 99285; U0001

== ENCOUNTER 2019-09-24 09:17 | Observation (INO) ==
[2019-09-24 09:37] LABS: Hematocrit 38.5 % (42.0-52.0); Hemoglobin 12.3 gm/dL (13.5-18.0); Mean Cell Volume 91.2 fl (78-100); Mean Corpuscular Hemoglobin 29.1 pg (27-31); Mean Corpuscular Hgb Conc 31.9 g/dl (32-36); Mean Platelet Volume 8.9 fl (8-11.3); Neutrophil # 5.7 K/mm3 (1.3-6.0); Neutrophil % 71.3 % (42-75.0); Platelet Count 246 K/mm3 (150-450); Red Blood Count 4.22 M/mm3 (4.7-6.0); Red Cell Distribution Width 14.5 % (11.5-14.0)
[2019-09-24 09:47] LABS: Prothrombin Time (Patient) 21.4 Seconds (9.1-10.7)
[2019-09-24 09:50] LABS: Albumin * 2.5 gm/dl (3.4-5.0); Anion Gap 11.1 mmol/L (6.8-13.8); BUN/Creatinine Ratio 11.9 (9.0-21.6); Bilirubin, Total 0.4 mg/dL (0.0-1.1); Ca. Corrected For Albumin 10.3 mg/dL (8.4-10.2); Calcium * 9.4 mg/dL (7.9-10.9); Carbon Dioxide 29.2 mmol/L (24-32.6); INR 2.23 INR (0.92-1.08); Partial Thrombolplastin Time 35.9 Seconds (24-32); Potassium 4.3 mmol/L (3.4-4.6); Total Protein 6.4 gm/dL (6.2-8.2)
--- NOTE | 2019-09-24 11:45 | ERNOTE ---
Neuro HPI ER Record Date of Service: 09/24/19 Presenting Symptoms: weakness, other - mental staus change Time Seen by Provider: 09/24/19 09:20 Source: family, EMS Exam Limitations: clinical condition Immunizations: IMMUNIZATION HX Immunizations Up to Date Yes History of Influenza Vaccine Yes Hx Pneumococcal Vaccination Yes Allergies/Adverse Reactions: Allergies Allergy/AdvReac Type Severity Reaction Status Date / Time Penicillins Allergy Severe Hives Verified 09/08/19 15:54 Home Medications: HOME MEDICATIONS Acetaminophen [Tylenol] 1,000 mg PO Q6H PRN tab 04/11/19 [Last Taken Unknown] nystatin 100,000 unit/gram topical powder 1 applic TOPICAL TID PRN #60 g 09/02/19 [Last Taken Unknown] glimepiride 2 mg tablet 2 mg PO DAILY #30 tab 09/16/19 [Last Taken Unknown] haloperidol 2 mg tablet 2 mg PO HS #30 tab 09/16/19 [Last Taken Unknown] levothyroxine 137 mcg tablet 137 mcg PO DAILY #30 tab 09/16/19 [Last Taken Unknown] metoprolol tartrate 100 mg tablet 100 mg PO BID #60 tab 09/16/19 [Last Taken Unknown] sertraline 50 mg tablet 50 mg PO DAILY #30 tab 09/16/19 [Last Taken Unknown] Warfarin Sodium [Coumadin] 5 mg PO SUTUWETHSA 09/24/19 [Last Taken Unknown] - History of Present Illness Narrative: Patient can provide no history. He has had stroke in the past, on Coumadin. [facility] in the [facility] because of behavior problems was discharged to home. Family is awaiting Hospice for home this week. He has been restless overnight and this am had what appeared to be a seizure. Was jerking and foaming at the mouth and then was unresponsive. Unclear how long this lasted. EMS called. Confused since yesterday. No other history available from the patient. Onset: other - symptoms for a day but seizure this am - Character of Deficits New weakness: Present: other - seems to have right arm weakness but improving since the EMS Additional Deficits: Present: other - unable Baseline Cognition: Present: alert but confused Associated Symptoms: Reports: other - unable to obtain Prior Treament: Denies: similar symptoms before Review of Systems - Narrative Narrative: ROS unobtainable d/t patient condition Medical History (Last Reviewed 09/24/19 @ 11:36 by Cresencio Mota MD) Atrial fibrillation (Chronic) Onset Date: ~05/2017 Hypovitaminosis D (Chronic) Onset Date: Unknown Stenosis of right carotid artery (Chronic) Onset Date: Unknown Secondary hyperparathyroidism (of renal origin) (Chronic) Onset Date: Unknown Psoriasis (Chronic) Onset Date: Unknown Onychomycosis (Chronic) Onset Date: Unknown Obesity (Chronic) Onset Date: Unknown Hypothyroidism (Chronic) Onset Date: Unknown Hypertension (Chronic) Onset Date: Unknown Hyperlipidemia (Chronic) Onset Date: Unknown Gout (Chronic) Onset Date: Unknown GERD (gastroesophageal reflux disease) (Chronic) Onset Date: Unknown Diabetes mellitus, type II (Chronic) Onset Date: Unknown Coronary artery disease (Chronic) Onset Date: 02/22/13 Chronic kidney disease, stage 3 (Chronic) Onset Date: Unknown Renal failure (Chronic) Onset Date: Unknown Arthritis (Chronic) Onset Date: Unknown Metabolic encephalopathy Onset Date: 01/17/19 Admitted to [facility] on 01/17/2019. Discharged home on 01/21/2019. BPH (benign prostatic hyperplasia) Onset Date: Unknown Gastritis Onset Date: ~05/2017 Headache Onset Date: Unknown Hyperkalemia Onset Date: Unknown Kidney stone Onset Date: Unknown Migraine Onset Date: Unknown Pneumonia Onset Date: Unknown Proteinuria Onset Date: Unknown Superficial thrombophlebitis of arm Onset Date: 01/17/19 Left forearm. [facility]. Toe pain, left Onset Date: Unknown Atrial flutter Onset Date: 06/09/17 Myocardial infarction Onset Date: Unknown x3 Surgical History: Surgical History (Last Reviewed 09/24/19 @ 11:36 by Cresencio Mota MD) H/O colonoscopy Onset Date: ~2008 [facility]: WNL History of PTCA Onset Date: Unknown History of angioplasty Onset Date: Unknown x3 History of back surgery Onset Date: 1983 Dr. Perry; Lumbar laminectomy L4 History of cholecystectomy Onset Date: ~1975 History of esophagogastroduodenoscopy (EGD) Onset Date: ~2008 History of excision of epidermal inclusion cyst Onset Date: 09/19/13 Dr. Lars Conroy, [facility]. Right groin. Family History: Family History (Last Reviewed 09/24/19 @ 11:36 by Cresencio Mota MD) Mother , age 84 Diabetes Breast cancer Social History: (Last Reviewed 09/24/19 @ 11:36 by Cresencio Mota MD) Social History: adopted: No jail: No household members: spouse number of children: 3 number of grandchildren: 11 current occupational status: retired Service: Yes Service comment: 1 yr branch: [employer] assignments: [employer] known or potential exposure: none Tobacco: Smoking Status: Never smoker Tobacco: How many years used: 36 Alcohol: alcohol intake: former Substance Use: substance use type: does not use Dietary Habits: caffeine: Yes caffeine comment: 1 cup of coffee, and 1 diet Mt. Dew daily. Type: carbonated beverages, coffee Nadiya/Denominational: special nadiya needs: No Physical Exam - Physical Exam General Appearance: Present: other - somnolent but opens eyes. Protecting airway at this point Head Exam: Present: normal inspection Eye Exam: Normal inspection: bilateral, PERRL: bilateral Ears, Nose, Throat: Absent: pharyngeal erythema Neck: Present: normal inspection Respiratory: Present: no respiratory distress, lungs clear Cardiovascular/Chest: Present: regular rate, rhythm, normal peripheral pulses Gastrointestinal/Abdominal: Present: normal bowel sounds, nontender, soft Back Exam: Absent: CVA tenderness (R), CVA tenderness (L) Extremity Exam: Present: other - no deformity Neurological Exam: Present: other - somnolent. Mild right facial droop, seems to have some weakness right arm c/w left but this is a very difficult exam. He will make some voluntary right arm movements however. Lower extremities difficult to assess strength. Difficult exam. Skin Exam: Present: normal color, warm/dry Progress - Results and Orders Patient's Lab Results:: I have reviewed the patient's lab results. - Vital Signs Patient's Vital Signs:: I have reviewed the patient's vital signs. Vital Signs: Vital Signs 09/24/19 09:19 09/24/19 09:26 09/24/19 09:28 Temperature 36.1 C Pulse Rate 80 95 75 Respiratory Rate 14 18 Blood Pressure 219/130 H 184/95 H O2 Sat by Pulse Oximetry 98 97 09/24/19 09:59 Temperature Pulse Rate 76 Respiratory Rate 20 Blood Pressure 136/81 O2 Sat by Pulse Oximetry 94 - EKG EKG #1 EKG: NSR EKG read: Interp. by me EKG Comments: NSR rate 72. RBBB, non-specific, no STEMI noted. - CT/Ultrasound CT/Ultrasound Narrative: I reviewed official radiology report for CT head. - Progress/Reassessment Chief Complaint: Altered Mental Status Progress Note-Subjective: 09/24/19 11:40 Patient seemed to be improving. Keppra given. I cannot r/o stroke that is new but had seizure at onset and is on Coumadin so not a tPA candidate. As well patient is being enrolled in Hospice. I spoke with Dr Madrigal who is the patient's PCP and he will admit. Departure Clinical Impression: Seizure-like activity, Stroke-like symptom, Change in mental status - Departure Disposition: Still a patient Condition: Fair
[2019-09-24 12:38] LABS: Urine Appearance Clear (CLEAR); Urine Bilirubin Negative (NEGATIVE); Urine Blood 250 /ul (NEGATIVE); Urine Color Yellow; Urine Ketone 5 mg/dL (NEGATIVE); Urine Specific Gravity 1.025 SP.GR. (1.005-1.030); Urine pH 6.5 pH (5.0-7.0)
[2019-09-24 12:39] LABS: Urine Nitrite Negative (NEGATIVE); Urine Protein >=300 mg/dL (NEGATIVE); Urine Urobilinogen Normal (NORMAL); Urine WBC 0-5 /hpf (0-5)
[2019-09-24 12:40] LABS: Urine Bacteria None Seen
[2019-09-24] MEDS ORDERED: hydrALAZINE HCL 20 MG/ML VIAL IV ONE (14:53)
--- NOTE | 2019-09-24 22:35 | HP ---
Chief Complaint - Chief Complaint Date of Service: 09/24/19 Time of Service: 22:35 Chief Complaint: Seizure, weakness, unresponsive History of Present Illness: Jayjay is an 79 yo male with progressing dementia, atrial flutter/fib, DMII, HTN, and CVA. He was at home when he became unresponsive, began jerking, and foaming at the mouth. Family reports it looked like he was having a seizure. He was brought to the [facility] ER where he remained unresponsive. Head CT was negative for acute change. Bloodwork was not significantly different from his usual. Over time he began to become more alert and more his baseline. At the time of my exam he is tired but seems back to himself. He was given IV keppra in the ER. Jayjay has no concerns at this time and is very pleasant. Medical History (Last Reviewed 09/24/19 @ 14:22 by Shanon Barone RN) Atrial fibrillation (Chronic) Onset Date: ~05/2017 Hypovitaminosis D (Chronic) Onset Date: Unknown Stenosis of right carotid artery (Chronic) Onset Date: Unknown Secondary hyperparathyroidism (of renal origin) (Chronic) Onset Date: Unknown Psoriasis (Chronic) Onset Date: Unknown Onychomycosis (Chronic) Onset Date: Unknown Obesity (Chronic) Onset Date: Unknown Hypothyroidism (Chronic) Onset Date: Unknown Hypertension (Chronic) Onset Date: Unknown Hyperlipidemia (Chronic) Onset Date: Unknown Gout (Chronic) Onset Date: Unknown GERD (gastroesophageal reflux disease) (Chronic) Onset Date: Unknown Diabetes mellitus, type II (Chronic) Onset Date: Unknown Coronary artery disease (Chronic) Onset Date: 02/22/13 Chronic kidney disease, stage 3 (Chronic) Onset Date: Unknown Renal failure (Chronic) Onset Date: Unknown Arthritis (Chronic) Onset Date: Unknown Metabolic encephalopathy Onset Date: 01/17/19 Admitted to [facility] on 01/17/2019. Discharged home on 01/21/2019. BPH (benign prostatic hyperplasia) Onset Date: Unknown Gastritis Onset Date: ~05/2017 Headache Onset Date: Unknown Hyperkalemia Onset Date: Unknown Kidney stone Onset Date: Unknown Migraine Onset Date: Unknown Pneumonia Onset Date: Unknown Proteinuria Onset Date: Unknown Superficial thrombophlebitis of arm Onset Date: 01/17/19 Left forearm. [facility]. Toe pain, left Onset Date: Unknown Atrial flutter Onset Date: 06/09/17 Myocardial infarction Onset Date: Unknown x3 Surgical History: Surgical History (Last Reviewed 09/24/19 @ 14:22 by Shanon Barone RN) H/O colonoscopy Onset Date: ~2008 [place]: WNL History of PTCA Onset Date: Unknown History of angioplasty Onset Date: Unknown x3 History of back surgery Onset Date: 1983 Dr. Perry; Lumbar laminectomy L4 History of cholecystectomy Onset Date: ~1975 History of esophagogastroduodenoscopy (EGD) Onset Date: ~2008 History of excision of epidermal inclusion cyst Onset Date: 09/19/13 Dr. Lars Conroy, [facility]. Right groin. Family History: Family History (Last Reviewed 09/24/19 @ 14:22 by Shanon Barone RN) Mother , age 84 Diabetes Breast cancer Social History: (Last Reviewed 09/24/19 @ 14:22 by Shanon Barone RN) Social History: adopted: No mcc: No household members: spouse number of children: 3 number of grandchildren: 11 current occupational status: retired Service: Yes Service comment: 1 yr branch: [employer] assignments: [employer], [employer] known or potential exposure: none Tobacco: Smoking Status: Never smoker Tobacco: How many years used: 36 Alcohol: alcohol intake: former Substance Use: substance use type: does not use Dietary Habits: caffeine: Yes caffeine comment: 1 cup of coffee, and 1 diet Mt. Dew daily. Type: carbonated beverages, coffee Nadiya/Yazidism: special nadiya needs: No Review Of Systems (GEN) - Review of Systems Generalized/Overall Review: Present: Weakness. Absent: Chills, Fever Respiratory: Absent: Cough, Shortness of Breath Cardiac: Absent: Chest Pain, Edema Abdominal: Absent: Nausea, Vomiting Genitourinary: Absent: Burning, Urgency Musculoskeletal: Present: Joint Pain, Back Pain Skin: Absent: Lesions, Lumps Immunizations: IMMUNIZATION HX Immunizations Up to Date Yes History of Influenza Vaccine Yes Hx Pneumococcal Vaccination Yes Allergies/Adverse Reactions: Allergies Allergy/AdvReac Type Severity Reaction Status Date / Time Penicillins Allergy Severe Hives Verified 09/24/19 14:23 Home Medications: HOME MEDICATIONS Acetaminophen [Tylenol] 1,000 mg PO Q6H PRN tab 04/11/19 [Last Taken Unknown] nystatin 100,000 unit/gram topical powder 1 applic TOPICAL TID PRN #60 g 09/02/19 [Last Taken Unknown] glimepiride 2 mg tablet 2 mg PO DAILY #30 tab 09/16/19 [Last Taken Unknown] haloperidol 2 mg tablet 2 mg PO HS #30 tab 09/16/19 [Last Taken Unknown] levothyroxine 137 mcg tablet 137 mcg PO DAILY #30 tab 09/16/19 [Last Taken Unknown] metoprolol tartrate 100 mg tablet 100 mg PO BID #60 tab 09/16/19 [Last Taken Unknown] sertraline 50 mg tablet 50 mg PO DAILY #30 tab 09/16/19 [Last Taken Unknown] Warfarin Sodium [Coumadin] 5 mg PO SUTUWETHSA 09/24/19 [Last Taken Unknown] Exam - Exam Vital Signs: Vital Signs - Last Taken Temp 36.3 C 09/24/19 18:32 Pulse 82 09/24/19 18:32 Resp 20 09/24/19 18:32 BP 158/101 H 09/24/19 18:32 Pulse Ox 97 09/24/19 18:32 Constitutional: Present: Alert, Cooperative, No distress ENT Exam: Present: hearing grossly normal Eye Exam: bilateral eye: normal inspection Respiratory: Present: lungs clear, normal breath sounds Cardiovascular/Chest: Present: regular rate, rhythm, no edema, no murmur Abdomen: Present: Normal bowel sounds, soft, nontender, nondistended Extremity: Present: other - moves all extremities equally Skin Exam: Present: normal color, warm/dry, no cyanosis Neurologic: Present: no motor/sensory deficits, other - oriented x 1 Appearance: Present: appropriate appearance, appropriate insight Eye contact: Present: cooperative, good eye contact Diagnostic Studies: Abnormal Lab Results 09/24/19 09/24/19 09/24/19 Range/Units 09:31 09:31 09:31 RBC 4.22 L (4.7-6.0) M/mm3 Hgb 12.3 L (13.5-18.0) gm/dL Hct 38.5 L (42.0-52.0) % MCHC 31.9 L (32-36) g/dl RDW 14.5 H (11.5-14.0) % Lymphocytes % 14.6 L (20-51) % Eosinophils % 7.5 H (0.0-3.0) % Lymphocytes # 1.17 L (1.5-3.5) k/mm3 PT 21.4 H (9.1-10.7) Seconds INR (Anticoag Therapy) 2.23 H (0.92-1.08) INR PTT (Gali) 35.9 H (24-32) Seconds Plasma Sodium 144 H (130-142) mmol/L Creatinine 1.59 H (0.4-1.4) mg/dL Est GFR (Non-Af Amer) 45 L (60-130) mL/min Random Glucose 205 H (70-110) mg/dL Calcium Adj for Albumin 10.3 H (8.4-10.2) mg/dL ALT 16 L (19-67) U/L Albumin 2.5 L (3.4-5.0) gm/dl Urine Protein (NEGATIVE) mg/dL Urine Glucose (UA) (NEGATIVE) mg/dL Urine Blood (NEGATIVE) /ul Prot Sulfosalicylic Acd (0) mg/dL Urine RBC (0-5) /hpf 09/24/19 Range/Units 12:22 RBC (4.7-6.0) M/mm3 Hgb (13.5-18.0) gm/dL Hct (42.0-52.0) % MCHC (32-36) g/dl RDW (11.5-14.0) % Lymphocytes % (20-51) % Eosinophils % (0.0-3.0) % Lymphocytes # (1.5-3.5) k/mm3 PT (9.1-10.7) Seconds INR (Anticoag Therapy) (0.92-1.08) INR PTT (Gali) (24-32) Seconds Plasma Sodium (130-142) mmol/L Creatinine (0.4-1.4) mg/dL Est GFR (Non-Af Amer) (60-130) mL/min Random Glucose (70-110) mg/dL Calcium Adj for Albumin (8.4-10.2) mg/dL ALT (19-67) U/L Albumin (3.4-5.0) gm/dl Urine Protein >=300 H (NEGATIVE) mg/dL Urine Glucose (UA) 100 H (NEGATIVE) mg/dL Urine Blood 250 H (NEGATIVE) /ul Prot Sulfosalicylic Acd 4+ H (0) mg/dL Urine RBC 10-25 H (0-5) /hpf Laboratory Results WBC 8.0 K/mm3 (4.0-10.5) 09/24/19 09: RBC 4.22 M/mm3 (4.7-6.0) L 09/24/19 09:31 Hgb 12.3 gm/dL (13.5-18.0) L 09/24/19 09: Hct 38.5 % (42.0-52.0) L 09/24/19 09: MCV 91.2 fl (78-100) 09/24/19 09: MCH 29.1 pg (27-31) 09/24/19 09: MCHC 31.9 g/dl (32-36) L 09/24/19 09: RDW 14.5 % (11.5-14.0) H 09/24/19 09: Plt Count 246 K/mm3 (150-450) 09/24/19 09: MPV 8.9 fl (8-11.3) 09/24/19 09: Immature Gran % (Auto) 0.20 % (0.001-0.429) 09/24/19 09: Immature Gran # (Auto) 0.02 K/mm3 (0.000-0.0310) 09/24/19 09: Neutrophils % 71.3 % (42-75.0) 09/24/19 09: Lymphocytes % 14.6 % (20-51) L 09/24/19 09: Monocytes % 5.9 % (0.0-9) 09/24/19 09: Eosinophils % 7.5 % (0.0-3.0) H 09/24/19 09: Basophils % 0.5 % (0.0-1.0) 09/24/19 09: Nucleated RBC % 0.0 k/mm3 (0-1) 09/24/19 09: Neutrophils # 5.7 K/mm3 (1.3-6.0) 09/24/19 09: Lymphocytes # 1.17 k/mm3 (1.5-3.5) L 09/24/19 09: Monocytes # 0.5 k/mm3 (0.0-1.0) 09/24/19 09:31 Eosinophils # 0.6 k/mm3 (0.0-0.7) 09/24/19 09:31 Absolute Basophils 0.0 k/mm3 (0.0-0.1) 09/24/19 09:31 PT 21.4 Seconds (9.1-10.7) H 09/24/19 09:31 INR (Anticoag Therapy) 2.23 INR (0.92-1.08) H 09/24/19 09:31 PTT (Gali) 35.9 Seconds (24-32) H 09/24/19 09:31 Sodium 142 mmol/L (132-142) 09/24/19 09:31 Plasma Sodium 144 mmol/L (130-142) H 09/24/19 09:31 Potassium 4.3 mmol/L (3.4-4.6) 09/24/19 09:31 Chloride 106 mmol/L (97-106) 09/24/19 09:31 Carbon Dioxide 29.2 mmol/L (24-32.6) 09/24/19 09:31 Anion Gap 11.1 mmol/L (6.8-13.8) 09/24/19 09:31 BUN 19 mg/dL (6-23) 09/24/19 09:31 Creatinine 1.59 mg/dL (0.4-1.4) H 09/24/19 09:31 Est GFR (Non-Af Amer) 45 mL/min (60-130) L 09/24/19 09:31 BUN/Creatinine Ratio 11.9 (9.0-21.6) 09/24/19 09:31 Random Glucose 205 mg/dL (70-110) H 09/24/19 09:31 Calcium 9.4 mg/dL (7.9-10.9) 09/24/19 09:31 Calcium Adj for Albumin 10.3 mg/dL (8.4-10.2) H 09/24/19 09:31 Total Bilirubin 0.4 mg/dL (0.0-1.1) 09/24/19 09:31 AST 16 U/L (0-48) 09/24/19 09:31 ALT 16 U/L (19-67) L 09/24/19 09:31 Alkaline Phosphatase 87 U/L (50-170) 09/24/19 09:31 Total Protein 6.4 gm/dL (6.2-8.2) 09/24/19 09:31 Albumin 2.5 gm/dl (3.4-5.0) L 09/24/19 09:31 Urine Color Yellow 09/24/19 12:22 Urine Appearance Clear (CLEAR) 09/24/19 12:22 Urine pH 6.5 pH (5.0-7.0) 09/24/19 12:22 Ur Specific [employer] 1.025 SP.GR. (1.005-1.030) 09/24/19 12:22 Urine Protein >=300 mg/dL (NEGATIVE) H 09/24/19 12:22 Urine Glucose (UA) 100 mg/dL (NEGATIVE) H 09/24/19 12:22 Urine Ketones 5 mg/dL (NEGATIVE) 09/24/19 12:22 Urine Blood 250 /ul (NEGATIVE) H 09/24/19 12:22 Urine Nitrate Negative (NEGATIVE) 09/24/19 12:22 Urine Bilirubin Negative mg/dl (NEGATIVE) 09/24/19 12:22 Prot Sulfosalicylic Acd 4+ mg/dL (0) H 09/24/19 12:22 Urine Urobilinogen Normal EU/dl (NORMAL) 09/24/19 12:22 Ur Leukocyte Esterase Negative /ul (NEGATIVE) 09/24/19 12:22 Urine RBC 10-25 /hpf (0-5) H 09/24/19 12:22 Urine WBC 0-5 /hpf (0-5) 09/24/19 12:22 Ur Epithelial Cells 0-5 /hpf (0-5) 09/24/19 12:22 Urine Bacteria None seen (NONE) 09/24/19 12:22 Urine Culture Comments No culture indicated 09/24/19 12:22 SARS-CoV-2 (PCR) Not detected (ND) 09/24/19 11:09 Assessment/Plan - Narrative Narrative: Jayjay will be admitted for new onset seizure. Potentially related to dementia and stroke. Will place on keppra. Family is looking into hospice at home. Will admit to obeservation at this time. Will discuss plans with hospice. - Assessment/Plan (1) Seizure-like activity Problem: Acute (2) Dementia Problem: Chronic Qualifiers: Dementia type: Alzheimer's disease Alzheimer's disease onset: late-onset (3) CVA (cerebral vascular accident) Problem: Chronic Qualifiers: CVA mechanism: unspecified Qualified Code(s): I63.9 - Cerebral infarction, unspecified (4) Atrial fibrillation Problem: Chronic Qualifiers: Atrial fibrillation type: chronic
[2019-09-24] MEDS ORDERED: NYSTATIN 15 APPL BTL TP PRN (23:45)
[2019-09-24] MEDS ORDERED: ACETAMINOPHEN 500 MG TABLET PO PRN (23:45)
[2019-09-25] MEDS: METOPROLOL TARTRATE 100 MG TABLET PO SCH ×4 (00:52→21:51)
[2019-09-25] MEDS: HALOPERIDOL 1 MG TABLET PO SCH ×3 (00:52→21:51)
[2019-09-25 06:09] LABS: Hematocrit 35.9 % (42.0-52.0); Hemoglobin 11.5 gm/dL (13.5-18.0); Mean Cell Volume 89.8 fl (78-100); Mean Corpuscular Hemoglobin 28.8 pg (27-31); Mean Platelet Volume 9.2 fl (8-11.3); Neutrophil # 6.1 K/mm3 (1.3-6.0); Platelet Count 244 K/mm3 (150-450); Red Cell Distribution Width 14.5 % (11.5-14.0); White Blood Count 8.4 K/mm3 (4.0-10.5)
[2019-09-25 06:15] LABS: Prothrombin Time (Patient) 20.9 Seconds (9.1-10.7)
[2019-09-25 06:16] LABS: INR 2.18 INR (0.92-1.08)
[2019-09-25 06:28] LABS: Albumin * 2.3 gm/dl (3.4-5.0); Anion Gap 9.3 mmol/L (6.8-13.8); BUN/Creatinine Ratio 13.3 (9.0-21.6); Bilirubin, Total 0.5 mg/dL (0.0-1.1); Ca. Corrected For Albumin 10.1 mg/dL (8.4-10.2); Calcium * 9.1 mg/dL (7.9-10.9); Carbon Dioxide 29.1 mmol/L (24-32.6); Potassium 3.4 mmol/L (3.4-4.6)
[2019-09-25] MEDS: LEVOTHYROXINE SODIUM 137 MCG TABLET PO SCH (07:06)
--- NOTE | 2019-09-25 11:33 | PN ---
Subjective - Date and Time Seen Date: 09/25/19 Time: 09:45 Subjective Narrative: Jayjay has no concerns. His speech is a little garbled today. No fever, chills, nausea, or vomiting. Objective - Vitals Vitals: Last Vital Signs Temp 36.3 C 09/25/19 07:01 Pulse 78 09/25/19 07:01 Resp 20 09/25/19 07:01 BP 155/93 H 09/25/19 07:01 Pulse Ox 93 09/25/19 07:01 - Abnormal Lab Findings Abnormal Lab Findings: Abnormal Lab Results 09/24/19 09/25/19 09/25/19 Range/Units 12:22 05:50 05:50 RBC 4.00 L (4.7-6.0) M/mm3 Hgb 11.5 L (13.5-18.0) gm/dL Hct 35.9 L (42.0-52.0) % RDW 14.5 H (11.5-14.0) % Lymphocytes % 11.2 L (20-51) % Eosinophils % 6.3 H (0.0-3.0) % Neutrophils # 6.1 H (1.3-6.0) K/mm3 Lymphocytes # 0.94 L (1.5-3.5) k/mm3 PT 20.9 H (9.1-10.7) Seconds INR (Anticoag Therapy) 2.18 H (0.92-1.08) INR Chloride (97-106) mmol/L Est GFR (Non-Af Amer) (60-130) mL/min Random Glucose (70-110) mg/dL ALT (19-67) U/L Total Protein (6.2-8.2) gm/dL Albumin (3.4-5.0) gm/dl Urine Protein >=300 H (NEGATIVE) mg/dL Urine Glucose (UA) 100 H (NEGATIVE) mg/dL Urine Blood 250 H (NEGATIVE) /ul Prot Sulfosalicylic Acd 4+ H (0) mg/dL Urine RBC 10-25 H (0-5) /hpf 09/25/19 Range/Units 05:50 RBC (4.7-6.0) M/mm3 Hgb (13.5-18.0) gm/dL Hct (42.0-52.0) % RDW (11.5-14.0) % Lymphocytes % (20-51) % Eosinophils % (0.0-3.0) % Neutrophils # (1.3-6.0) K/mm3 Lymphocytes # (1.5-3.5) k/mm3 PT (9.1-10.7) Seconds INR (Anticoag Therapy) (0.92-1.08) INR Chloride 107 H (97-106) mmol/L Est GFR (Non-Af Amer) 54 L (60-130) mL/min Random Glucose 131 H D (70-110) mg/dL ALT 14 L (19-67) U/L Total Protein 6.0 L (6.2-8.2) gm/dL Albumin 2.3 L (3.4-5.0) gm/dl Urine Protein (NEGATIVE) mg/dL Urine Glucose (UA) (NEGATIVE) mg/dL Urine Blood (NEGATIVE) /ul Prot Sulfosalicylic Acd (0) mg/dL Urine RBC (0-5) /hpf - Exam Constitutional: Present: Alert, Cooperative ENT Exam: Present: hearing grossly normal Respiratory: Present: lungs clear, normal breath sounds, no respiratory distress Cardiovascular/Chest: Present: regular rate, rhythm. Absent: edema Abdomen: Present: Normal bowel sounds, soft, nontender, nondistended, no rebound tenderness Skin Exam: Present: normal color, warm/dry, no cyanosis Neurologic: Present: other - speech garbled Eye contact: Present: cooperative, good eye contact Assessment/Plan Plan Narrative: I will continue Keppra for Jayjay for potential seizure prevention. Will consult with hospice tomorrow to make plans for home hospice if that is family wishes. No other changes in medication at this time. - Problems/Diagnosis (1) Seizure-like activity Problem: Acute (2) Dementia Problem: Chronic Qualifiers: Dementia type: Alzheimer's disease Alzheimer's disease onset: late-onset (3) CVA (cerebral vascular accident) Problem: Chronic Qualifiers: CVA mechanism: unspecified Qualified Code(s): I63.9 - Cerebral infarction, unspecified (4) Atrial fibrillation Problem: Chronic Qualifiers: Atrial fibrillation type: chronic
[2019-09-25] MEDS: GLIMEPIRIDE 2 MG TABLET PO SCH (11:49)
[2019-09-25] MEDS: SERTRALINE HCL 50 MG TABLET PO SCH (11:49)
[2019-09-25] MEDS: levETIRAcetam 500 MG TABLET PO SCH ×2 (11:52→21:52)
[2019-09-25] MEDS ORDERED: WARFARIN SODIUM 2.5 MG TABLET PO SCH (17:00)
[2019-09-26] MEDS: METOPROLOL TARTRATE 100 MG TABLET PO SCH (08:13)
[2019-09-26] MEDS: SERTRALINE HCL 50 MG TABLET PO SCH (08:13)
[2019-09-26] MEDS: LEVOTHYROXINE SODIUM 137 MCG TABLET PO SCH (08:13)
[2019-09-26] MEDS: GLIMEPIRIDE 2 MG TABLET PO SCH (08:13)
[2019-09-26] MEDS: levETIRAcetam 500 MG TABLET PO SCH (08:13)
--- NOTE | 2019-09-26 10:50 | DS ---
(1) Seizure-like activity Problem: Acute (2) Dementia Problem: Chronic Qualifiers: Dementia type: Alzheimer's disease Alzheimer's disease onset: late-onset (3) CVA (cerebral vascular accident) Problem: Chronic Qualifiers: CVA mechanism: unspecified Qualified Code(s): I63.9 - Cerebral infarction, unspecified (4) Atrial fibrillation Problem: Chronic Qualifiers: Atrial fibrillation type: chronic Date of Discharge:: 09/26/19 Hospital Course: Jayjay is an 79 yo male with dementia, history of stroke, atrial fibrillation, diabetes mellitus who was admitted for new onset seizure. Seizure is likely related to stroke. He was started on Keppra 500mg BID. He has not had any seizures at our facility. The family would like to go home with home hospice. This has been arranged and he will be discharged today. I will adjust medications for hospice. Hospice will set up hospital bed and a bedside table for him at home. Jayjay qualifies for home hospice as he is home bound and unable to get out of the home due to weakness and dementia. He qualifies for hospice as I expect less than 6 months of life remaining due to progressive dementia and stroke. Procedures Performed: none Results and Findings: Lab Pending Results 09/24/19 09:31: WBC 8.0, RBC 4.22 L, Hgb 12.3 L, Hct 38.5 L, MCV 91.2, MCH 29.1, MCHC 31.9 L, RDW 14.5 H, Plt Count 246, MPV 8.9, Immature Gran % (Auto) 0.20, Immature Gran # (Auto) 0.02, Neutrophils % 71.3, Lymphocytes % 14.6 L, Monocytes % 5.9, Eosinophils % 7.5 H, Basophils % 0.5, Nucleated RBC % 0.0, Neutrophils # 5.7, Lymphocytes # 1.17 L, Monocytes # 0.5, Eosinophils # 0.6, Absolute Basophils 0.0 09/24/19 09:31: PT 21.4 H, INR (Anticoag Therapy) 2.23 H, PTT (Gali) 35.9 H 09/24/19 09:31: Sodium 142, Plasma Sodium 144 H, Potassium 4.3, Chloride 106, Carbon Dioxide 29.2, Anion Gap 11.1, BUN 19, Creatinine 1.59 H, Est GFR (Non-Af Amer) 45 L, BUN/Creatinine Ratio 11.9, Random Glucose 205 H, Calcium 9.4, Calcium Adj for Albumin 10.3 H, Total Bilirubin 0.4, AST 16, ALT 16 L, Alkaline Phosphatase 87, Total Protein 6.4, Albumin 2.5 L 09/24/19 11:09: SARS-CoV-2 (PCR) Not detected 09/24/19 12:22: Urine Color Yellow, Urine Appearance Clear, Urine pH 6.5, Ur Specific [place] 1.025, Urine Protein >=300 H, Urine Glucose (UA) 100 H, Urine Ketones 5, Urine Blood 250 H, Urine Nitrate Negative, Urine Bilirubin Negative, Prot Sulfosalicylic Acd 4+ H, Urine Urobilinogen Normal, Ur Leukocyte Esterase Negative, Urine RBC 10-25 H, Urine WBC 0-5, Ur Epithelial Cells 0-5, Urine Bacteria None seen, Urine Culture Comments No culture indicated 09/25/19 05:50: WBC 8.4, RBC 4.00 L, Hgb 11.5 L, Hct 35.9 L, MCV 89.8, MCH 28.8, MCHC 32.0, RDW 14.5 H, Plt Count 244, MPV 9.2, Immature Gran % (Auto) 0.40, Immature Gran # (Auto) 0.03, Neutrophils % 73.0, Lymphocytes % 11.2 L, Monocytes % 8.5, Eosinophils % 6.3 H, Basophils % 0.6, Nucleated RBC % 0.0, Neutrophils # 6.1 H, Lymphocytes # 0.94 L, Monocytes # 0.7, Eosinophils # 0.5, Absolute Basophils 0.1 09/25/19 05:50: PT 20.9 H, INR (Anticoag Therapy) 2.18 H 09/25/19 05:50: Sodium 142, Plasma Sodium 142, Potassium 3.4 D, Chloride 107 H, Carbon Dioxide 29.1, Anion Gap 9.3, BUN 18, Creatinine 1.35, Est GFR (Non-Af Amer) 54 L, BUN/Creatinine Ratio 13.3, Random Glucose 131 H D, Calcium 9.1, Calcium Adj for Albumin 10.1, Total Bilirubin 0.5, AST 16, ALT 14 L, Alkaline Phosphatase 82, Total Protein 6.0 L, Albumin 2.3 L Discharge Location: Home Disposition: Hospice Home Home Health Agency: [facility] Hospice Condition: Fair Discharge Activity: Activity as tolerated Discharge Diet: General/regular food Referrals: Darell Madrigal, [Primary Care Provider] - (may do virtual visits as needed) Problem Oriented Discharge Instructions to Patient/Family: Non-Epileptic Seizures, Adult Prescriptions (Any new or edited meds): levETIRAcetam [Keppra Solution] 500 mg PO BID #1 btl Transmission Status: Pending to [facility] Lorazepam [Lorazepam Intensol] 2 mg PO Q2H PRN #60 oral.conc PRN Reason: anxiety/restlessness Transmission Status: Sent to [facility] Complete Home Medications List: Complete Home Medication List: Acetaminophen [Tylenol] 1,000 mg PO Q6H PRN tab 04/11/19 nystatin 100,000 unit/gram topical powder 1 applic TOPICAL TID PRN #60 g 09/02/19 glimepiride 2 mg tablet 2 mg PO DAILY #30 tab 09/16/19 haloperidol 2 mg tablet 2 mg PO HS #30 tab 09/16/19 metoprolol tartrate 100 mg tablet 100 mg PO BID #60 tab 09/16/19 sertraline 50 mg tablet 50 mg PO DAILY #30 tab 09/16/19 Lorazepam [Lorazepam Intensol] 2 mg PO Q2H PRN #60 oral.conc 09/26/19 levETIRAcetam [Keppra Solution] 500 mg PO BID #1 btl 09/26/19 levETIRAcetam [Keppra] 500 mg PO BID tab 09/26/19
[2019-09-26 16:40] VITALS: BP 168/87
[2019-09-26] MEDS ORDERED: WARFARIN SODIUM 5 MG TABLET PO SCH (17:00)
== END 2019-09-26 14:30 | disposition hospice, home (50) ==
LOC: ER 09:17 → MS 09:17
PROVIDERS: ADMIT Family Medicine; ATTEND Family Medicine
CPT/HCPCS: 36415; 70450; 80053; 81001; 85025; 85610; 85730; 93005; 96365; 96375; 99284; 99285; G0378